=== PATIENT | male | born 1955 | race Caucasian/White ===

== ENCOUNTER 2020-04-15 08:43 | Outpatient (NON) | payer OTHER, SELFPAY ==
[2020-04-15 19:55] LABS: SARS-CoV-2 RNA PCR Negative
== END 2020-04-15 08:44 ==
PROVIDERS: PCP Nurse Practitioner Family; Visit Provider Nurse Practitioner Family
DX: R05 Cough (principal); Z20.828 Contact with and (suspected) exposure to other viral communicable diseases
CPT/HCPCS: 87635; C9803; U0003

== ENCOUNTER 2020-11-12 09:59 | Outpatient (CLI) | payer OTHER, SELFPAY ==
--- NOTE | 2020-11-12 14:41 | WPDPFTINT ---
PFT Procedure Performed PFT Procedure Performed Spirometry with Pre/Post Bronchodilator Plethysmography (Lung Vol) Diffusing Cap (DLCO) Flow Vol Loop PFT Interpretation This is a pulmonary function test with pre and post-bronchodilator spirometry, plethysmography and diffusing capacity. The test was performed and results interpreted in accordance with the 2019 and 2005 ATS/ERS Task Force guidelines respectively using the Global Lung Function Initiative-2012 reference equations. Patient demonstrated good effort and cooperation. The patient did have difficulty generating strong inspiratory efforts. Reproducibility criteria were met. The quality of the pre bronchodilator spirometry maneuver was Grade A and post bronchodilator spirometry maneuver was Grade B. Findings: Spirometry: there is decreased maximal expiratory airflow at low lung volumes with a concave expiratory flow tracing. The inspiratory flow tracings is flattened with an FEF: FIF 50 ratio of 2.71. the pre bronchodilator FVC is 3.77 L, 90% predicted. The pre bronchodilator FEV1 is 2.71 L, 84% predicted. The FEV1: FVC ratio 72%. The post bronchodilator FVC is 3.96 L, representing an 5% increase. The post bronchodilator FEV1 is 2.94 L, representing an 8% increase. Plethysmography: The total lung capacity is 8.85 L, 134% predicted. Functional residual capacity is 6.47 L, 187% predicted. The residual volume is 4.93 L, 222% predicted. Diffusing capacity: The absolute diffusion capacity is 26.0, 98% predicted. The diffusing capacity corrected for alveolar volume is 4.74, 112% predicted. Impression: There is a mild obstructive abnormality with a normal FEV1 and without significant improvement after inhaling a single dose of albuterol. The inspiratory flow tracing is flattened consistent with a variable extrathoracic obstruction. This can be seen with vocal cord paralysis, structural or functional vocal fold abnormalities, extrathoracic tracheomalacia, polychondritis, mobile tumors, and laryngomalacia. Clinical correlation is recommended. The increase in residual volume is consistent with air trapping from an obstructive abnormality. Hyperinflation is present is demonstrated by the increase in functional residual capacity and total lung capacity and is consistent with an obstructive abnormality. The diffusing capacity is normal. There are no prior studies for comparison
== END 2020-11-12 10:00 | disposition home or self-care (01) ==
LOC: ANHPFT 10:02
PROVIDERS: PCP Nurse Practitioner Family; Visit Provider Nurse Practitioner
DX: R05 Cough (principal)
CPT/HCPCS: 94060; 94726; 94729

== ENCOUNTER 2021-01-06 10:00 | Day surgery (SDC) | payer OTHER, SELFPAY ==
[2021-01-06] VITALS (11 sets, daily range): BP systolic 84–162; BP diastolic 62–100; PULSE 76–99; RESP 12–18; TEMP 36.4–37.2; O2SAT 95–100
--- NOTE | ~2021-01-06 | CT_ITS ---
EXAMINATION: CT abdomen pelvis wo con DATE: 01/06/2021 11:53 INDICATION: Left flank pain, hematuria TECHNIQUE: Computed tomography (CT) of the abdomen and pelvis was performed without intravenous contr ast. The dose-length product (DLP) was 365.73 mGy-cm. Automated exposure control and iterative recons truction technique were employed. COMPARISON: None FINDINGS: The lung bases are clear. The heart size is normal. The liver, spleen, pancreas, gallbladde r, and adrenal glands are normal. There is a 2.8 cm cyst of the right kidney. The left kidney is unre markable. No stones are identified in the kidneys, ureters, or bladder. There is no hydronephrosis or hydroureter. There is an approximately 5.6 x 4.1 cm soft tissue density in the lumen of the urinary bladder. No pathologically enlarged abdominal or pelvic lymph nodes are identified. There is no free intraperitoneal gas or evidence of bowel obstruction. Colonic diverticulosis is present without evide nce of diverticulitis. There is tiny fat-containing umbilical hernia. IMPRESSION: 1. Soft tissue density in the lumen of the urinary bladder which could reflect mass or hematoma. Dire ct visualization is recommended. 2. No urolithiasis identified. Reviewed, dictated and finalized at location A. IMPRESSION: 1. Soft tissue density in the lumen of the urinary bladder which could reflect mass or hematoma. Direct visualization is recommended. 2. No urolithiasis identified.
[2021-01-06 10:24] LABS: Basophils Percent Auto 0.5 % (0.2-1.2); Eosinophils Absolute Auto 0.1 K/mm3 (0-0.3); Eosinophils Percent Auto 1.6 % (0-4.4); Hematocrit 51.3 % (42.0-52.0); Hemoglobin 16.8 g/dL (14.0-18.0); Immature Granulocyte Absolute 0.01 K/mm3 (0.00-0.031); Immature Granulocyte Percent A 0.1 % (0-0.5); Lymphocytes Absolute Auto 1.42 K/mm3 (0.9-3.2); Lymphocytes Percent Auto 19.3 % (18.3-44.2); Mean Corpuscular HGB Conc 32.7 g/dl (32-36); Mean Corpuscular Hemoglobin 29.8 pg (26-34); Mean Platelet Volume 9.5 fl (7.4-10.4); Monocytes Absolute Auto 0.8 K/mm3 (0.1-0.6); Monocytes Percent Auto 10.3 % (2.6-8.5); Neutrophils Percent Auto 68.2 % (45.5-73.1); Platelet Count Result 223 k/mm3 (150-375); Red Blood Count 5.64 M/mm3 (4.6-6.20); White Blood Count 7.4 K/mm3 (4.5-10.0)
[2021-01-06 10:39] LABS: Anion Gap 8 mmol/L (8-16); Blood Urea Nitrogen 18 mg/dL (9-20); Calcium 8.9 mg/dL (8.4-10.2); Carbon Dioxide 30 mmol/L (22-30); Chloride 101 mmol/L (98-107); Estimated CRCL calculation 64 ml/min; Estimated Glomerular Filt Rate > 60; Glucose 113 mg/dL (65-110); Potassium 3.7 mmol/L (3.4-5.0); Sodium 139 mmol/L (137-145)
[2021-01-06 11:12] LABS: Add Urine Microscopic? YES; Appearance Urine Cloudy (Clear); Bilirubin Urine Negative (Negative); Blood Urine 3+ (Negative); Color Urine Red (Yellow); Glucose Urine UA 1+ mg/dL (Negative); Ketones Urine Negative (Negative); Leukocyte Esterase Ur Negative LEU/UL (Negative); Mucus Urine Moderate /lpf; Nitrate Urine Negative (Negative); Protein Urine 3+ mg/dL (Negative); RBC Urine >75 /hpf (0-2); Urobilinogen Urine Negative mg/dL (<2.0)
--- NOTE | 2021-01-06 12:48 | WPDHPUPDATE1 ---
History and Physical Update Update Date/Time: 01/06/21 12:48 History and Physical has been reviewed, including an updated exam of the patient. There are NO changes in the patient's condition. Risks, benefits, and alternatives have been discussed and questions answered. Patient agrees to proceed with procedure. Proceed with cysto, clot evacuation, possible turbt
--- NOTE | 2021-01-06 13:00 | ED.MALEGU ---
HPI - Male Genitourinary General Chief complaint: Urogenital-Male Stated complaint: left flank pain, hematuria Time Seen by Provider: 01/06/21 11:30 Source: patient Mode of arrival: ambulatory Limitations: no limitations History of Present Illness HPI Narrative: 65-year-old male Only medication is for thyroid Presents for evaluation of hematuria Patient states that 21 woke up this morning he had some discomfort in his lower abdomen and left flank and grossly bloody urine when he went to the bathroom He also had a sensation vaguely like his urine was cut off A second attempt showed pale hematuria and his discomfort has improved He does not take any blood thinners Related Data Allergies Allergy/AdvReac Type Severity Reaction Status Date / Time No Known Allergies Allergy Unverified 03/29/18 09:30 Review of Systems Review of Systems: All systems reviewed & are unremarkable except as noted in HPI and below Constitutional: Constitutional: Reports no additional constitutional complaints, Denies chills, Denies fever(s) and Denies headache(s) ENT: Denies headache(s) Cardiovascular: Cardiovascular: Denies chest pain and Denies dyspnea Respiratory: Respiratory: Denies cough and Denies dyspnea Gastrointestinal: Gastrointestinal: Reports abdominal pain, Denies diarrhea, Denies nausea and Denies vomiting Genitourinary: Genitourinary: Reports hematuria, Reports oliguria, Denies dysuria and Denies urinary frequency Musculoskeletal: Musculoskeletal: Denies deformity, Denies arthralgias, Denies joint swelling and Denies numbness Integumentary/Breasts: Skin/Breast: Denies wounds Hematologic/Lymphatic: Hematologic/Lymphatic: Reports no additional hematologic/lymphatic complaints Exam Const: General: cooperative, no acute distress and alert Orientation/consciousness: patient oriented x3 (alert) Limitations: altered mental status HENMT: Head: normal to inspection, normocephalic and atraumatic Ears: external ears normal General nose exam: no epistaxis Eyes: Conjunctivae: conjunctivae normal EOM: EOMs intact bilaterally Neck: Neck: normal visual inspection, supple and no JVD Resp: Effort & Inspection: normal respiratory effort and not labored Auscultation: clear to auscultation bilaterally and other (BS =) Cardio: Rate: regular rate Rhythm: regular rhythm GI: GI Palp: Yes Soft to palpation, No Tenderness to palpation present (GI), No Guarding due to palpation present (GI), No Palpable mass present and No Rebound tenderness present : General: Yes CVA tenderness (Mild, left side) Skin: General skin exam: normal color and no rashes or lesions noted Neuro: General: patient oriented x3 (alert) and moves all extremities Speech: normal speech Extrem: General: normal to inspection Psych: Affect: normal affect Course Course Emergency Course: Discussed CT results with Dr. Garg, either looks like a large mass or alternately a large clot emanating from a smaller mass that is not seen on the CT and he will be able to go for cystoscopy this afternoon Vital Signs Vital signs: Vital Signs Temperature 36.4 C 01/06/21 10:12 Pulse Rate 92 01/06/21 10:12 Respiratory Rate 18 01/06/21 10:12 Blood Pressure 154/95 H 01/06/21 10:12 Pulse Oximetry 95 01/06/21 10:12 Temperature 36.4 C 01/06/21 10:12 Pulse Rate 92 01/06/21 10:12 Respiratory Rate 18 01/06/21 10:12 Blood Pressure 154/95 H 01/06/21 10:12 Pulse Oximetry 95 01/06/21 10:12 [facility] - Male Genitourinary Lab Data Result diagrams: 01/06/21 10:17 01/06/21 10:17 Labs: Lab Results 01/06/21 01/06/21 01/06/21 Range/Units 10:17 10:17 10:41 WBC 7.4 (4.5-10.0) K/mm3 RBC 5.64 (4.6-6.20) M/mm3 Hgb 16.8 (14.0-18.0) g/dL Hct 51.3 (42.0-52.0) % MCV 91.0 (80-100) fl MCH 29.8 (26-34) pg MCHC 32.7 (32-36) g/dl RDW 14.0 (11.5-14.5) % Plt Count 223 (150-375) k/mm3
--- NOTE | 2021-01-06 14:47 | PM.IMHP ---
H&P: HPI History of Present Illness Date/Time: 01/06/21 14:47 Chief Complaint: gross hematuria with clots Narrative: 65 year old male presented to er with gross hematuria and clot. Ct in ER revealed a 5 cm irregularity in the bladder ( tumor vs clot). Presents for cystoscopy with clot evacuation, possible turbt. Review of Systems Review of Systems: All systems reviewed & are unremarkable except as noted in HPI and below Meds Home Medications and Allergies Allergies Allergy/AdvReac Type Severity Reaction Status Date / Time No Known Allergies Allergy Unverified 03/29/18 09:30 Vital Signs Vital Signs - 24 hr 01/06/21 10:12 Temperature 36.4 C Pulse Rate 92 Respiratory Rate 18 Blood Pressure 154/95 H Pulse Oximetry 95 Exam Const: General: cooperative Eyes: General: appearance normal, both eyes and all related structures Neck: Neck: normal visual inspection Chest: Chest palpation & inspection: normal inspection of the chest Resp: Effort & Inspection: normal respiratory effort Cardio: Rate: regular rate Rhythm: regular rhythm GI: Inspection: normal to inspection Skin: General skin exam: normal color H&P: Results Labs Labs: Short CBC 01/06/21 Range/Units 10:17 WBC 7.4 (4.5-10.0) K/mm3 Hgb 16.8 (14.0-18.0) g/dL Hct 51.3 (42.0-52.0) % Plt Count 223 (150-375) k/mm3 BMP 01/06/21 10:17 Sodium 139 Potassium 3.7 Chloride 101 Carbon Dioxide 30 BUN 18 Creatinine 1.00 Glucose 113 H Calcium 8.9 Urine 01/06/21 Range/Units 10:41 Urine Color Red H (Yellow) Urine Appearance Cloudy H (Clear) Urine pH 7.0 (5.0-9.0) Ur Specific [place] 1.020 (1.001-1.035) Urine Protein 3+ H (Negative) mg/dL Urine Glucose (UA) 1+ H (Negative) mg/dL Assessment and Plan Assessment and plan (1) Hematuria: Code(s): R31.9 - Hematuria, unspecified Status: Acute Assessment and Plan: Plan for cystoscopy with clot evacuation. (2) Bladder mass: Code(s): N32.89 - Other specified disorders of bladder Status: Acute Assessment and Plan: Will consider TURBT if has a mass other than clot
--- NOTE | 2021-01-06 14:52 | WPDANESEPPF ---
Anes - Initial Pre Proc Eval Procedure: Operation Date: 01/06/21 15:30 Proposed Procedures p Cystoscopy, Evacuation Bladder Clot, - Uche Garg MD s Possible Trans Urethral Resection Bladder Tumor - Uche Garg MD Date/Time: 01/06/21 14:52 Surgeon: Uche Garg MD Pre Op Diagnosis: left flank pain, hematuria Patient Data Age: 65 Gender: M Height: 1.73 m Weight: 78.9 kg Last Vital Signs Temp 36.4 C 01/06/21 10:12 Pulse 92 01/06/21 10:12 Resp 18 01/06/21 10:12 BP 154/95 H 01/06/21 10:12 Pulse Ox 95 01/06/21 10:12 Allergies Allergy/AdvReac Type Severity Reaction Status Date / Time No Known Allergies Allergy Verified 01/06/21 15:02 Home Medications Medication Instructions Recorded Confirmed Type levothyroxine 75 mcg PO DAILY 01/06/21 01/06/21 History Laboratory Tests 01/06/21 01/06/21 01/06/21 10:17 10:17 10:41 WBC 7.4 K/mm3 K/mm3 (4.5-10.0) RBC 5.64 M/mm3 M/mm3 (4.6-6.20) Hgb 16.8 g/dL g/dL (14.0-18.0) Hct 51.3 % % (42.0-52.0) MCV 91.0 fl fl (80-100) MCH 29.8 pg pg (26-34) MCHC 32.7 g/dl g/dl (32-36) RDW 14.0 % % (11.5-14.5) Plt Count 223 k/mm3 k/mm3 (150-375) MPV 9.5 fl fl (7.4-10.4) Immature Gran % (Auto) 0.1 % % (0-0.5) Neut % (Auto) 68.2 % % (45.5-73.1) Lymph % (Auto) 19.3 % % (18.3-44.2) [place] % (Auto) 10.3 % H % (2.6-8.5) Eos % (Auto) 1.6 % % (0-4.4) Baso % (Auto) 0.5 % % (0.2-1.2) Lymph # (Auto) 1.42 K/mm3 K/mm3 (0.9-3.2) [place] # (Auto) 0.8 K/mm3 H K/mm3 (0.1-0.6) Eos # (Auto) 0.1 K/mm3 K/mm3 (0-0.3) Baso # (Auto) 0.0 K/mm3 K/mm3 (0.0-0.1) Abs Immat Gran (auto) 0.01 K/mm3 K/mm3 (0.00-0.031) Absolute Neuts (auto) 5.0 K/mm3 K/mm3 (1.3-6.7) Absolute Nucleated RBC 0.0 K/mm3 K/mm3 (0.0-0.012) Nucleated RBC % 0.0 % % (0.0-0.2) Sodium 139 mmol/L mmol/L (137-145) Potassium 3.7 mmol/L mmol/L (3.4-5.0) Chloride 101 mmol/L mmol/L (98-107) Carbon Dioxide 30 mmol/L mmol/L (22-30) Anion Gap 8 mmol/L mmol/L (8-16) BUN 18 mg/dL mg/dL (9-20) Creatinine 1.00 mg/dL mg/dL (0.7-1.3) Estim Creat Clear Calc 64 ml/min ml/min Estimated GFR > 60 (59 - ) Glucose 113 mg/dL H mg/dL (65-110) Calcium 8.9 mg/dL mg/dL (8.4-10.2) Urine Color Red H (Yellow) Urine Appearance Cloudy H (Clear) Urine pH 7.0 (5.0-9.0) Ur Specific [place] 1.020 (1.001-1.035) Urine Protein 3+ mg/dL H mg/dL (Negative) Urine Glucose (UA) 1+ mg/dL H mg/dL (Negative) Urine Ketones Negative mg/dL mg/dL (Negative) Ur Blood (Man) 3+ H (Negative) Urine Nitrate Negative (Negative) Urine Bilirubin Negative (Negative) Urine Urobilinogen Negative mg/dL mg/dL (<2.0) Leukocyte Esterase Rfl Negative PRESTON/UL PRESTON/UL (Negative) Urine RBC >75 /hpf H /hpf (0-2) Urine Mucus Moderate /lpf H /lpf Patient hx anesthesia problems: none Family hx anesthesia problems: none PMFSH Past Medical History Medical History COPD (chronic obstructive pulmonary disease) Social History Social History (Updated 01/06/21 @ 15:15 by Yaneli Contreras APRN) Smoking status: Unknown if ever smoked Alcohol intake: unknown Substance use: unknown Living arrangements: with family Anes - Eval Final PreProcedure Day of Procedure 01/06/21 14:52 Patient weight: overweight Heart: regular rate and rhythm Lungs: clear to auscultation and normal air movement Airway: Mallampati scale class I
[2021-01-06] MEDS: LACTATED RINGERS 1,000 ML 30 ML IV CONT ×2 (14:55→16:08)
[2021-01-06] MEDS: ceFAZolin 2 GM/D5W 50 ML 2 GM/50 ML BAG IVPB (15:04)
--- NOTE | 2021-01-06 15:05 | WPDURCON ---
Assessment and Plan Assessment and plan (1) Bladder mass: Code(s): N32.89 - Other specified disorders of bladder Status: Acute Assessment and Plan: Obtain consent: Cystoscopy, possible clot evacuation, possible TURBT. Keep NPO Plan to go to the OR today with Dr. Garg. (2) Hematuria: Code(s): R31.9 - Hematuria, unspecified Status: Acute Urology Consult Note HPI Date Seen: 01/06/21 Requesting Physician: Uche Garg MD Primary Care Provider: Yaneli Mancilla, [employer]- Consult Narrative Narrative: Venkatesh Olivas is a 65 year old male who presents to the ER today with acute onset of gross hematuria and left flank pain that developed this morning. He denies any urologic history prior to this episode. He denies fever, chills, nausea, vomiting, abdominal pain, dysuria or history of BPH/OAB. His UA shows only RBC's no leukocytes, WBC is 7.4 and creatinine is 1.00. His CT shows a large bladder mass measuring 5.6 x 4.1 cm, and a right renal cyst. Review of Systems Cardiovascular: Cardiovascular: Denies chest pain Respiratory: Respiratory: Reports no additional respiratory complaints Gastrointestinal: Gastrointestinal: Denies abdominal pain, Denies nausea and Denies vomiting Genitourinary: Genitourinary: Denies dysuria, Reports flank pain (Left), Denies testicular pain, Denies urinary frequency, Denies urinary hesitancy and Denies urinary urgency [facility] Past Medical History Medical History COPD (chronic obstructive pulmonary disease) Social History Social History (Updated 01/06/21 @ 15:15 by Yaneli Contreras APRN) Smoking status: Unknown if ever smoked Alcohol intake: unknown Substance use: unknown Living arrangements: with family Meds Home Medications and Allergies Home Medications Medication Instructions Recorded Confirmed Type levothyroxine 75 mcg PO DAILY 01/06/21 01/06/21 History Allergies Allergy/AdvReac Type Severity Reaction Status Date / Time No Known Allergies Allergy Verified 01/06/21 15:02 Vital Signs Vital Signs - 24 hr 01/06/21 10:12 01/06/21 13:35 Temperature 97.6 F 97.5 F L Pulse Rate 92 90 Respiratory Rate 18 18 Blood Pressure 154/95 H 158/90 H Pulse Oximetry 95 97 Exam Resp: Effort & Inspection: normal respiratory effort Cardio: Rate: regular rate GI: GI Palp: Yes Soft to palpation and No Tenderness to palpation present (GI) : General: Yes CVA tenderness on the left Extrem: General: no edema Results Labs CBC & Chem 7: 01/06/21 10:17 01/06/21 10:17 Labs: Short CBC 01/06/21 Range/Units 10:17 WBC 7.4 (4.5-10.0) K/mm3 Hgb 16.8 (14.0-18.0) g/dL Hct 51.3 (42.0-52.0) % Plt Count 223 (150-375) k/mm3 BMP 01/06/21 10:17 Sodium 139 Potassium 3.7 Chloride 101 Carbon Dioxide 30 BUN 18 Creatinine 1.00 Glucose 113 H Calcium 8.9 Urine 01/06/21 Range/Units 10:41 Urine Color Red H (Yellow) Urine Appearance Cloudy H (Clear) Urine pH 7.0 (5.0-9.0) Ur Specific [place] 1.020 (1.001-1.035) Urine Protein 3+ H (Negative) mg/dL Urine Glucose (UA) 1+ H (Negative) mg/dL
[2021-01-06] MEDS: LIDOCAINE HCL 2% GEL UROJET 10 ML PKG MUCOUS MEM (15:35)
--- NOTE | 2021-01-06 15:43 | W.PM.PROC2 ---
Procedure Note - Detailed Date of Procedure 01/06/21 Pre-op Diagnosis left flank pain, hematuria Post-op Diagnosis same Procedure Performed Cystoscopy with clot evacuation and fulguration Surgeon Uche Garg MD Anesthesia general Findings Small amount of clot in bladder. No bladder tumors noted. Increased vascularity of prostate around bladder neck Description of Procedure Patient is taken the operative suite correctly identified. Once anesthesia was obtained was placed in dorsal lithotomy position and prepped draped usual sterile fashion. Twenty-two German scope was inserted the bladder direct vision. Prostate has lateral lobe hypertrophy and a fairly vascular bladder neck area. Upon entering the bladder it was difficult to visualize. We irrigated out approximately 30-40 cc of clot. Reinspection revealed no tumors or active bleeding. Both ureteral orifices are effluxing clear urine at this point time. He did have increased vascularity of the prostate at the bladder neck area. We went ahead and fulgurated some of this primarily on the right lobe. At this point time 2% viscous lidocaine was inserted urethra. Eight[address] was placed and connected to CBI. 10 cc were placed in the balloon. He is taken recovery room stable condition. Will wean CBI to off and discharged home with a catheter overnight. Plan on removing [place] in the morning. Patient does have what is noted to be a cyst on noncontrast CT. We will end up ordering a CT urogram on him to formally evaluate the renal parenchyma. Drains Yes Packing No Pathology none sent Complications No immediate complications Condition stable Disposition PACU
--- NOTE | 2021-01-06 16:24 | SUR.PHASEI ---
CBI STOPPED AT 1625
[2021-01-06] MEDS: fentaNYL CITRATE INJ (*CRX) 100 MCG/2 ML VIAL 25 MCG IV PUSH ×2 (16:36→16:40)
[2021-01-06] MEDS: oxyCODONE HCL (*CRX) 5 MG TAB IR PO (17:19)
--- NOTE | 2021-01-06 18:05 | SUR.PHASEII ---
pt meets discharge criteria and is waiting for his ride
== END 2021-01-06 18:15 | disposition home or self-care (01) ==
LOC: ANHED 13:04 → ANHSURGERY 13:43
PROVIDERS: Emergency Medicine; Emergency Provider Emergency Medicine; PCP Nurse Practitioner Family; Visit Provider Urology
PROC: 0TCB8ZZ Extirpation of Matter from Bladder, Via Natural or Artificial Opening Endoscopic (ICD-10-PCS; CPT 52001; principal; 2021-01-06 15:30)
DX: N42.89 Other specified disorders of prostate (principal); R31.9 Hematuria, unspecified; N28.1 Cyst of kidney, acquired; J44.9 Chronic obstructive pulmonary disease, unspecified; E07.9 Disorder of thyroid, unspecified
CPT/HCPCS: 52214; 36415; 74176; 80048; 81001; 85025; 99285; A9270; J0690; J2250; J3010; J7120

== ENCOUNTER → 2021-11-10 09:33 | Outpatient (CLI) | payer SELFPAY ==
--- NOTE | ~2021-11-10 | CT_ITS ---
EXAMINATION: CT diagnostic chest wo con DATE: 11/10/2021 09:56 INDICATION: Chronic cough TECHNIQUE: Computed tomography (CT) of the chest was performed without intravenous contrast. Automate d exposure control and iterative reconstruction technique were employed. The dose-length product was 309.25 mGy-cm. COMPARISON: X-ray chest 04/14/2017, CT abdomen and pelvis 01/06/2021. FINDINGS: CHEST: Thoracic aorta: Mild ectasia and arch calcification. Lung parenchyma and airways: Subtle area of groundglass centrilobular opacities in the dependent righ t middle lobe. Mild senescent changes. Airways are clear. Mild bibasilar scar/atelectasis. Thoracic inlet, axillae and chest wall: No thyroid or soft tissue mass. No axillary lymphadenopathy. Mediastinum: Subcentimeter AP window and subcarinal nodes. Heart and pericardium: Normal heart size. No pericardial effusion. Coronary artery calcifications: Mild. Pleura: No effusion or mass. Upper abdomen: No significant finding. Thoracic bones: No acute osseous finding in the chest. IMPRESSION: Subtle right middle lobe opacities may reflect hypersensitivity pneumonitis, respiratory bronchioliti s in smokers, or infectious airways disease. Reviewed, dictated and finalized at location K. IMPRESSION: Subtle right middle lobe opacities may reflect hypersensitivity pneumonitis, re spiratory bronchiolitis in smokers, or infectious airways disease.
== END ==
PROVIDERS: PCP Nurse Practitioner Family; Visit Provider Nurse Practitioner
DX: R05.3 Chronic cough (principal); R91.8 Other nonspecific abnormal finding of lung field
CPT/HCPCS: 99199; 71250

== ENCOUNTER 2021-11-26 08:57 | Outpatient (CLI) | payer MEDICARE, SELFPAY ==
--- NOTE | 2021-11-26 13:22 | WPDPFTINT ---
PFT Procedure Performed PFT Procedure Performed Spirometry with Pre/Post Bronchodilator Plethysmography (Lung Vol) Diffusing Cap (DLCO) Flow Vol Loop PFT Interpretation This is a pulmonary function test with pre and post-bronchodilator spirometry, plethysmography and diffusing capacity. The test was performed and results interpreted in accordance with the 2019 and 2005 ATS/ERS Task Force guidelines respectively using the Global Lung Function Initiative-2012 reference equations. Patient demonstrated good effort and cooperation. Reproducibility criteria were met. The quality of the pre bronchodilator spirometry maneuver was Grade A and post bronchodilator spirometry maneuver was Grade B. It was noted that the patient had difficulty with the inspiratory limb of the spirometry maneuvers. Findings: Spirometry: There is decreased maximal expiratory flow at low lung volumes with concave expiratory flow tracing. The inspiratory flow tracing is flattened with the FEF:FIF 50 ratio of 2.31. The pre bronchodilator FVC is 4.09 L, 98% predicted. The pre bronchodilator FEV1 is 2.94 L, 92% predicted. The pre bronchodilator FEV1: FVC ratio 72%. The post bronchodilator FVC is 3.91 L, representing a 4% decrease. The post bronchodilator FEV1 is 2.99 L, representing a 2% increase. The post bronchodilator FEV1: FVC ratio 77%. Plethysmography: The total lung capacity is 8.07 L, 122% predicted. The functional residual capacity is 5.22 L, 151% predicted. The residual volume is 3.62 L, 162% predicted. Diffusing capacity: The diffusion capacity unadjusted for hemoglobin and carboxyhemoglobin is 22.2, 84% predicted. The diffusing capacity adjusted for alveolar volume is 4.77, 113% predicted. In comparison to the previous pulmonary function test on 11/12/2020 the inspiratory flow tracing was flattened and it was noted that the patient had difficulty generate strong inspiratory limbs of the spirometry on that study as well. The post bronchodilator FVC is unchanged from 3.96 L to 3.91 L. The post bronchodilator FEV1 is unchanged from 2.94 L to 2.99 L. The total lung capacity is unchanged from 8.85 L to 8.07 L. The functional residual capacity is decreased from 6.47 L to 5.22 L. The residual volume is decreased from 4.93 L to 3.62 L. The diffusing capacity unadjusted for hemoglobin and carboxyhemoglobin is decreased from 26.0 to 22.2. The diffusing capacity adjusted for alveolar volume is unchanged from 4.74 to 4.77. Impression: The contour of the inspiratory flow tracing is flattened. Flattening of the inspiratory flow tracing is seen with variable extrathoracic obstruction. This has been described with vocal cord paralysis, structural or functional vocal fold abnormalities, extrathoracic tracheomalacia, polychondritis, mobile tumors, and laryngomalacia. Clinical correlation is recommended. There is a mild obstructive abnormality with a normal FEV1 and without significant improvement after inhaling a single dose of albuterol. The increase in residual volume is consistent with air trapping from an obstructive abnormality. Hyperinflation is present as demonstrated by the increase in functional residual capacity and is consistent with an obstructive abnormality. The diffusing capacity is normal. In comparison to previous pulmonary function test on 11/12/2020 the flattened inspiratory flow flow tracing is unchanged. There has been a greater than anticipated time dependent decrease in the functional residual capacity, residual volume, and diffusing capacity unadjusted for hemoglobin and carboxyhemoglobin with no significant change in the post bronchodilator FVC, FEV1, total lung capacity and diffusing capacity adjusted for alveolar volume. Clinical correlation is recommended.
== END 2021-11-26 08:58 | disposition home or self-care (01) ==
PROVIDERS: PCP Nurse Practitioner Family; Visit Provider Nurse Practitioner
DX: R05.3 Chronic cough (principal); R94.2 Abnormal results of pulmonary function studies
CPT/HCPCS: 94060; 94375; 94726; 94729

== ENCOUNTER 2022-01-05 13:27 | Outpatient (CLI) | payer MEDICARE, SELFPAY ==
--- NOTE | ~2022-01-05 | XR_ITS ---
EXAMINATION: XR barium swallow modified DATE: 01/05/2022 14:09 INDICATION: Dysphagia. Hoarseness. TECHNIQUE: The patient was given barium-containing material of multiple consistencies to swallow by t wilfred speech pathologist while I performed fluoroscopy. Fluoroscopy exposure time was 1.7 minutes. The n umber of fluoroscopy images saved to the PACS was 1. Dose-area product was 1.293 Gy-cm^2. FINDINGS: The oral stage is within functional limits. There is reduced laryngeal elevation, reduced laryngeal a dduction, reduced tongue base retraction, reduced pharyngeal squeeze, vallecular residue, piriform si nus residue, laryngeal penetration, and aspiration. The cervical/esophageal stage is within functiona l limits. IMPRESSION: 1. Laryngeal penetration and aspiration. 2. Please refer to the speech therapy report for recommendations. Reviewed, dictated and finalized at location A.
--- NOTE | 2022-01-05 16:22 | REHSTMBS ---
Assessment and note entered by Ashley Royal, TRANSITIONS MANAGER RN Modified Barium Swallow Evaluation ST Clinical Summary The above pt was positioned for a lateral view and presented with thin liquids and pudding consistency in 3-4 ml amounts. Given the patient's medical history of 30-35 radiation treatments, recurrent pneumonia, current vocal hoarseness, and c/o food getting stuck in his throat, the pt was immediately instructed on the initial trials to produce an effortful swallow. The oral stages are within functional limits; with both thin liquid and pudding consistencies, reduced tongue base retraction movement was exhibited which resulted in severe vallecular residue; upon a/p view, noted was a slightly greater amount of residual in the right valleculae and pyriform sinus. Reduced laryngeal elevation was also exhibited as evidenced by laryngeal penetration during the swallow and severe pyriform sinus residual. Aspiration subsequently occurred after the swallow . With laryngeal sensitivity the pt produced repeated dry swallows as well as a cough reflex but he was not able to clear all residual and/or aspirate. Changes in head positioning, i.e. chin tuck/flexion and turning his head to the right only resulted in minimal improvement or change. The use of a modified version of the supraglottic swallow also did not yield significant improvement . Impression: moderate to severe dysphagia Recommendation: outpatient speech therapy
== END 2022-01-05 13:28 | disposition home or self-care (01) ==
PROVIDERS: PCP Nurse Practitioner Family; Visit Provider Otolaryngology
DX: R13.10 Dysphagia, unspecified (principal); R47.02 Dysphasia; R49.0 Dysphonia; J32.9 Chronic sinusitis, unspecified; R09.81 Nasal congestion; J38.00 Paralysis of vocal cords and larynx, unspecified; Z92.3 Personal history of irradiation
CPT/HCPCS: 92611

== ENCOUNTER 2022-01-10 15:30 | Outpatient (RCR) | payer MEDICARE, SELFPAY ==
--- NOTE | 2021-10-24 09:13 | STOPEVAL ---
Thank you for referring Venkatesh Olivas to [facility] The patient is scheduled to be seen for therapy? 2x/week for 4 weeks. Please review, sign, date and return this plan of care HI. I agree with and certify that the following plan of care is medically necessary. 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 Patient indicated that his voice became hoarse during that time and his thyroid was affected and his pituitary gland may have been affected. 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 About three/
--- NOTE | 2022-01-14 13:56 | PCSTNOTE ---
Continuing Speech Therapy treatment with new number: [id number].
--- NOTE | 2022-01-14 14:10 | PCSTNOTE ---
This treatment is being continued on visit number [id number]. Please see documentation on both accounts to view progress. Completed interventions, outcomes, and problems have been marked as Inactive to facilitate the copying of the Care plan routine for recurring accounts.
== END 2022-01-14 13:49 | disposition home or self-care (01) ==
LOC: ANHST 15:30
PROVIDERS: PCP Nurse Practitioner Family; Referring Provider Nurse Practitioner Family; Visit Provider Nurse Practitioner Family
DX: J38.02 Paralysis of vocal cords and larynx, bilateral (principal)
CPT/HCPCS: 92524; 92526

== ENCOUNTER 2022-01-12 08:40 | Outpatient (CLI) | payer MEDICARE, SELFPAY ==
--- NOTE | ~2022-01-12 | CT_ITS ---
EXAMINATION: CT soft tissue neck w con DATE: 01/12/2022 09:10 INDICATION: Vocal cord paralysis. Tonsil cancer status post radiation therapy. TECHNIQUE: Computed tomography (CT) of the neck was performed with 75 mL Omnipaque-350 intravenous co ntrast. Automated exposure control and iterative reconstruction technique were employed. The dose-rocael gth product was 602.90 mGy-cm. COMPARISON: Chest CT 11/10/2021 FINDINGS: There is mild scarring at the lung apices. There are likely changes of ocular lens replacem ent surgeries. There is a 10 x 16 mm lymph node in the aorticopulmonary window. There is plaque in th e proximal internal carotid arteries with less than 50% stenosis relative to normal distal artery lum en diameters. There is moderate cervical spondylosis. IMPRESSION: 1. Mildly enlarged mediastinal lymph node, which may be reactive or metastatic disease. Reviewed, dictated and finalized at location A.
[2022-01-12 09:05] LABS: Estimated Glomerular Filt Rate > 60
== END 2022-01-12 08:41 | disposition home or self-care (01) ==
PROVIDERS: PCP Nurse Practitioner Family; Visit Provider Otolaryngology
DX: J38.00 Paralysis of vocal cords and larynx, unspecified (principal); I65.23 Occlusion and stenosis of bilateral carotid arteries; R59.9 Enlarged lymph nodes, unspecified; M47.812 Spondylosis without myelopathy or radiculopathy, cervical region
CPT/HCPCS: 70491; Q9967

== ENCOUNTER 2022-01-19 08:32 | Outpatient (RCR) | payer MEDICARE, SELFPAY ==
--- NOTE | 2022-01-14 14:12 | PCSTNOTE ---
The treatment documented on this account is a continuation of the treatment documented on visit number [id number]. Please see documentation on both accounts to view progress. The Plan of Care has been transitioned and updated within the new V#. I have addressed and agree with the discipline specific Problems, Interventions, and Goals for the current certification period. Completed interventions, outcomes, and problems have been marked as Inactive to facilitate the copying of the Care plan routine for recurring accounts.
--- NOTE | 2022-02-03 13:25 | STOPDC ---
Assessment and note entered by Raegan Cadet POPCORN VENDOR Evaluation Information Assessment Status Discharge - Pt Not Presen Assessment ST Clinical Summary DISCHARGE SUMMARY This patient was seen for a Modified Barium Swallow study and then one treatment of Speech Therapy to instruct exercises to improve the strength and safety of the swallow. Patient voiced and demonstrated good understanding of the home exercise program and completed the exercises faithfully. He reported that he feels that the exercises have been helpful and additionally, he has noted an improvement in his voicing ability. Patient discharged at his requested secondary to report of an issue with a lymph node, stating that he wanted to focus on dealing with his lymph node issue at this time, but stating that he would be continuing with the home exercise program independently. He is being discharged this date with goals achieved. Thank you for allowing the opportunity of working with this gentleman. Plan of Care ST Services Indicated No
--- NOTE | 2022-02-03 13:30 | STOPDC ---
Assessment and note entered by Raegan Cadet CLINICAL EXERCISE SPECIALIST Evaluation Information Assessment Status Discharge - Pt Not Presen Assessment ST Clinical Summary DISCHARGE SUMMARY This patient was seen for a Modified Barium Swallow study and then two treatments of Speech Therapy to address exercises to improve the strength and safety of the swallowing. Patient voiced and demonstrated good understanding of the home exercise program and completed the exercises faithfully. He reported that he feels that the exercises have been helpful and additionally, he has noted an improvement in his voicing ability. Patient discharged at his requested secondary to report of an issue with a lymph node, stating that he wanted to focus on dealing with his lymph node issue at this time, but stating that he would be continuing with the home exercise program independently. He is being discharged this date with goals achieved. Thank you for allowing the opportunity of working with this gentleman. Plan of Care ST Services Indicated No
== END 2022-02-03 15:18 | disposition home or self-care (01) ==
LOC: ANHST 08:32
PROVIDERS: PCP Nurse Practitioner Family; Visit Provider Nurse Practitioner Family
DX: J38.02 Paralysis of vocal cords and larynx, bilateral (principal)
CPT/HCPCS: 92526

== ENCOUNTER 2022-07-26 09:27 | Emergency (ER) | payer MEDICARE, SELFPAY ==
[2022-07-26] VITALS (7 sets, daily range): BP systolic 132–167; BP diastolic 84–95; PULSE 85–93; RESP 14–20; TEMP 36.6; O2SAT 93–100
--- NOTE | 2022-07-26 | ECG_ITS ---
Measurements Intervals [place] Rate: 93 P: 14 GA: 133 QRS: -5 QRSD: 97 T: 31 QT: 342 QTc: 426 Interpretive Statements SINUS RHYTHM INCOMPLETE RIGHT BUNDLE BRANCH BLOCK [90+ ms QRS DURATION, TERMINAL R IN V1/V2, 40+ ms S IN I/aVL/V4/V5/V6] BASELINE ARTIFACT PRESENT NO PREVIOUS ECG AVAILABLE FOR COMPARISON Electronically Signed On 07-26-2022 16:05:18 CDT by Ynes Piña M.D.
--- NOTE | ~2022-07-26 | XR_ITS ---
EXAMINATION: XR chest 1V portable DATE: 07/26/2022 10:55 INDICATION: Shortness of breath and wheezing TECHNIQUE: frontal view of the chest was obtained. COMPARISON: Chest radiograph dated 04/04/2017 FINDINGS: The lungs remain clear with no focal airspace opacities, pulmonary edema, pleural effusion or pneumot horax. The cardiomediastinal silhouette is normal. Visualized bones and soft tissues are unremarkable . IMPRESSION: 1. No acute cardiopulmonary disease. Reviewed, dictated and finalized at location A.
--- NOTE | ~2022-07-26 | CT_ITS ---
EXAMINATION: CT soft tissue neck w con DATE: 07/26/2022 11:47 INDICATION: Stridor. TECHNIQUE: Computed tomography (CT) of the neck was performed with 75 mL Omnipaque-350 intravenous co ntrast. Automated exposure control and iterative reconstruction technique were employed. The dose-rocael gth product was 590.21 mGy-cm. COMPARISON: Neck CT 01/12/2022 FINDINGS: There is mild scarring at the lung apices. There are likely changes of ocular lens replacem ent surgeries. There is a 10 x 14 mm left paratracheal lymph node. There is plaque in the proximal in ternal carotid arteries with less than 50% stenosis relative to normal distal artery lumen diameters. The pharynx and larynx are unremarkable. There is mucosal thickening in the paranasal sinuses. There is severe cervical spondylosis. IMPRESSION: 1. Mildly enlarged mediastinal lymph node, stable from 01/12/2022, which may be reactive or metastatic disease. Reviewed, dictated and finalized at location A.
[2022-07-26] MEDS: methylPREDNISolone SOD SUCC 125 MG VIAL IV PUSH (10:40)
[2022-07-26 11:16] LABS: Basophils Percent Auto 0.6 % (0.2-1.2); Eosinophils Absolute Auto 0.1 K/mm3 (0-0.3); Eosinophils Percent Auto 1.3 % (0-4.4); Immature Granulocyte Absolute 0.01 K/mm3 (0.00-0.031); Immature Granulocyte Percent A 0.1 % (0-0.5); Lymphocytes Percent Auto 16.3 % (18.3-44.2); Mean Corpuscular HGB Conc 33.3 g/dl (32-36); Mean Corpuscular Volume 90.1 fl (80-100); Mean Platelet Volume 10.4 fl (7.4-10.4); Monocytes Absolute Auto 0.8 K/mm3 (0.1-0.6); Monocytes Percent Auto 11.4 % (2.6-8.5); Neutrophils Absolute Auto 4.8 K/mm3 (1.3-6.7); Neutrophils Percent Auto 70.3 % (45.5-73.1); Platelet Count Result 250 k/mm3 (150-375); Red Blood Count 5.66 M/mm3 (4.6-6.20); Red Cell Distribution Width 15.1 % (11.5-14.5); White Blood Count 6.8 K/mm3 (4.5-10.0)
[2022-07-26 11:25] LABS: Alanine Aminotransferase 28 U/L (6-50); Albumin Level 4.3 g/dL (3.5-5.1); Alkaline Phosphatase 53 U/L (38-126); Anion Gap 6 mmol/L (8-16); Aspartate Amino Transferase 45 U/L (17-59); Bilirubin,Total 0.8 mg/dL (0.2-1.3); Blood Urea Nitrogen 17 mg/dL (9-20); CRP 0.6 mg/dL (<1.0); Calcium 8.7 mg/dL (8.4-10.2); Carbon Dioxide 31 mmol/L (22-30); Chloride 100 mmol/L (98-107); Estimated CRCL calculation 64 ml/min; Estimated Glomerular Filt Rate > 60; Glucose 122 mg/dL (65-110); Potassium 3.9 mmol/L (3.4-5.0); Sodium 137 mmol/L (137-145)
--- NOTE | 2022-07-26 11:53 | ED.SOB ---
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 He has long standing wheezing intermittently worse at night. He also has been having stridor when sleeping at night for a while. He has been evaluated by ENT and pulmonology for his symptoms. He states he was outside working in the yard yesterday, and today he woke up wheezing, sob and stridor that he only usually has with sleeping. These symptoms started this morning and they are improving. He denies fever, cough, sore throat, chills, runny nose or congestion. He has appointment with ENT in August. Related Data Home Medications Medication Instructions Recorded Confirmed levothyroxine 75 mcg tablet 75 mcg PO DAILY 01/06/21 01/06/21 albuterol sulfate 90 mcg/actuation inhalation 07/26/22 07/26/22 aerosol inhaler ergocalciferol (vitamin D2) 1,250 07/26/22 mcg (50,000 unit) capsule fluticasone furoate 100 inhalation 07/26/22 mcg/actuation blister powder for inhalation (Arnuity Ellipta) omeprazole 40 mg capsule,delayed mg 07/26/22 release tadalafil 10 mg tablet mg 07/26/22 Allergies Allergy/AdvReac Type Severity Reaction Status Date / Time No Known Allergies Allergy Verified 07/26/22 10:17 Review of Systems Constitutional: Constitutional: Denies weakness Cardiovascular: Cardiovascular: Denies syncope, Denies rapid heart rate, Denies irregular heart rhythm, Denies leg edema and Denies dyspnea Respiratory: Respiratory: Denies chest congestion, Denies hemoptysis, Denies excessive phlegm production, Reports dyspnea and Reports wheezing Gastrointestinal: Gastrointestinal: Denies abdominal pain, Denies hematochezia, Denies diarrhea and Denies vomiting Genitourinary: Genitourinary: Denies hematuria, Denies dysuria, Denies penile discharge and Denies testicular pain Musculoskeletal: Musculoskeletal: Denies joint swelling, Denies loss of height and Denies muscle weakness Neurologic: Denies syncope, Denies focal weakness and Denies weakness PMFSH Past Medical History Medical History COPD (chronic obstructive pulmonary disease) Hypothyroid Tonsil cancer Surgical History Surgical History Hx of tonsillectomy Social History Social History Smoking status: Never smoker Substance use: never Living arrangements: with family Exam Const: General: no acute distress and alert Nutritional Appearance: well nourished Orientation/consciousness: patient oriented x3 HENMT: Head: normal to inspection Ears: external ears normal Face and sinus: normal facial exam Mouth: Yes Normal oral and palatal mucosa present, Yes lip normal and Yes moist mucous membranes Teeth and gingiva: dentition normal Throat: posterior oropharynx normal and uvula midline Eyes: EOM: EOMs intact bilaterally Neck: Neck: normal visual inspection and no lymphadenopathy Chest: Chest palpation & inspection: normal inspection of the chest Resp: Effort & Inspection: labored (slightly labored), no retractions and no use of accessory muscles Auscultation: clear to auscultation bilaterally Other: mild audible stridor Cardio: Rate: regular rate Rhythm: regular rhythm Heart sounds: no murmurs GI: GI Palp: Yes Soft to palpation, No Tenderness to palpation present (GI), No Guarding due to palpation present (GI) and No Rigid due to palpation Aus
== END 2022-07-26 13:20 | disposition home or self-care (01) ==
PROVIDERS: Emergency Provider General Practice; PCP Nurse Practitioner Family
DX: R06.00 Dyspnea, unspecified (principal); J38.7 Other diseases of larynx; J44.9 Chronic obstructive pulmonary disease, unspecified; E03.9 Hypothyroidism, unspecified; Z79.51 Long term (current) use of inhaled steroids; Z85.21 Personal history of malignant neoplasm of larynx; Z92.3 Personal history of irradiation
CPT/HCPCS: 36415; 70491; 71045; 80053; 85025; 86140; 93005; 96374; 99284; J2930; Q9967

== ENCOUNTER 2023-05-23 12:29 | Emergency (ER) | payer MEDICARE, SELFPAY ==
--- NOTE | ~2023-05-23 | XR_ITS ---
EXAMINATION: XR foot RT min 3V DATE: 05/23/2023 13:05 INDICATION: Right foot pain and swelling. TECHNIQUE: 4 views of right foot were obtained. COMPARISON: None. FINDINGS: Bone alignment is normal. No fracture. There is mild osteoarthritis of first metatarsophala ngeal joint and some of the midfoot joints. There is mild to moderate osteoarthritis of some of the i nterphalangeal joints. IMPRESSION: 1. Polyarticular osteoarthritis. Reviewed, dictated and finalized at location A. HEALTH RN
[2023-05-23 12:39] VITALS: BP 145/76; PULSE 85; RESP 16; TEMP 36.8; O2SAT 96
--- NOTE | 2023-05-23 13:11 | ED.EXTPRO ---
HPI - Extremity Problem General Chief complaint: Extremity Problem,Nontraumatic Stated complaint: Right Foor Pain Source: patient Mode of arrival: ambulatory Limitations: no limitations History of Present Illness HPI Narrative: Patient presents for evaluation of pain in the right foot for last 2 days. Pain is primarily located in the MTP joint of the big toe. He has associated redness. He rates his pain 2/10 in severity and describes it as tenderness . Pain is worse with movement and pressure applied to the affected area. He took ibuprofen which provided some relief. No history of similar symptoms. No known injury. Denies paresthesias. No history of gout. He also reports some sinus congestion and drainage as of late. Related Data Home Medications Medication Instructions Recorded Confirmed albuterol sulfate 90 mcg/actuation 2 puff inhalation Q4HWA 05/23/23 05/23/23 aerosol inhaler docusate sodium 100 mg capsule 100 mg PO BID 05/23/23 05/23/23 ergocalciferol (vitamin D2) 1,250 1 unit PO DIRECTED 05/23/23 05/23/23 mcg (50,000 unit) capsule latanoprost 0.005 % eye drops 1 drp EACH EYE HS 05/23/23 05/23/23 levothyroxine 88 mcg tablet 88 mcg PO DAILY 05/23/23 05/23/23 tadalafil 10 mg tablet 10 mg PO PRN PRN Erectile 05/23/23 05/23/23 Dysfunction Allergies Allergy/AdvReac Type Severity Reaction Status Date / Time No Known Allergies Allergy Verified 05/23/23 12:34 Review of Systems Review of Systems: CONSTITUTIONAL: Denies fever, chills, or sweats. EYES: Denies visual changes, redness, or discharge. ENT: Reports sinus congestion and drainage. CARDIOVASCULAR: Denies chest pain, palpitations, or edema. RESPIRATORY: Denies cough or dyspnea. GASTROINTESTINAL: Denies abdominal pain, nausea, vomiting, or diarrhea. GENITOURINARY: Denies dysuria or hematuria. SKIN: reports redness in the right great toe. MUSCULOSKELETAL: Reports pain in the right great toe. NEUROLOGIC: Denies headache, numbness, dizziness, or weakness. PSYCHIATRIC: Denies anxiety or depression. [facility] Past Medical History Medical History COPD (chronic obstructive pulmonary disease) Hypothyroid Tonsil cancer Surgical History Surgical History Hx of tonsillectomy Family History Family History Mother Lung cancer Social History Social History Smoking status: Never smoker Alcohol intake: never Substance use: never Lack of Transportation: No Lack of Food: Never True Current Housing: I Have Housing Concerned About Future Housing: No Difficulty Paying Gas/Electric Bills: No Difficulty Paying for Meds: No Currently Unemployed: No Education: Master's Degree or Higher Difficulty w/ Childcare or Family Care: No Living arrangements: with family Occupation/Education: retired Gender identity (if verbalized by the patient): Male Exam Narrative: GENERAL: Well-appearing, well-nourished, and in no acute distress. HEAD: Normocephalic, atraumatic. EYES: PERRLA and EOMI. ENT: Nares clear, no rhinorrhea or epistaxis. Mucous membranes moist. Oropharynx without tonsillar hypertrophy exudate or other lesions. Bilateral TMs pearly virgen nonbulging NECK: Supple. No adenopathy or masses. No carotid bruits or JVD CHEST: Clear to auscultation. No respiratory distress. No wheezes rales or rhonchi HEART: Regular rate and rhythm. No murmur heard. Normal peripheral pulses. ABDOMEN: Soft, nontender, nondistended, normal active bowel sounds. EXTREMITIES: Normal range of motion. No edema. There is tenderness noted over the MTP joint of the right great toe. SKIN: There is erythema noted to the MTP joint of the right great toe. NEURO: No focal deficits. Alert and oriented x3. PSYC
== END 2023-05-23 13:36 | disposition home or self-care (01) ==
PROVIDERS: Emergency Provider Nurse Practitioner; PCP Family Medicine
DX: M10.9 Gout, unspecified (principal); J44.9 Chronic obstructive pulmonary disease, unspecified; E03.9 Hypothyroidism, unspecified; Z85.89 Personal history of malignant neoplasm of other organs and systems
CPT/HCPCS: 73630; 99213; G0463

== ENCOUNTER 2023-05-30 17:11 | Emergency (ER) | payer MEDICARE, SELFPAY ==
--- NOTE | 2023-05-30 17:31 | ED.GENADULT ---
HPI - General Adult General Chief complaint: Upper Respiratory Infection Stated complaint: sinus issue recurring since last visit,chills Time Seen by Provider: 05/30/23 17:45 Source: patient, RN notes reviewed and old records reviewed Mode of arrival: ambulatory Limitations: no limitations History of Present Illness HPI narrative: Patient presents requesting a refill, treatment for a recurrent sinus infection. Had a 20 day treatment of Augmentin for sinus infection starting on April 26. Patient states he did get better for couple of days but then it returned. Presents today with fever, sinus congestion, headache. States that he took Aleve D this morning On arrival patient is hypertensive, tachycardic, tachypneic, low saturations as well as fever. Onset (ago): week(s) Treatments prior to arrival: NSAID Related Data Home Medications Medication Instructions Recorded Confirmed ergocalciferol (vitamin D2) 1,250 1 unit PO DIRECTED 05/23/23 05/30/23 mcg (50,000 unit) capsule latanoprost 0.005 % eye drops 1 drp EACH EYE HS 05/23/23 05/30/23 levothyroxine 88 mcg tablet 88 mcg PO DAILY 05/23/23 05/30/23 docusate sodium 100 mg capsule 100 mg PO DAILY 05/30/23 05/30/23 Allergies Allergy/AdvReac Type Severity Reaction Status Date / Time No Known Allergies Allergy Verified 05/30/23 11:20 Review of Systems Review of Systems: All systems reviewed & are unremarkable except as noted in HPI and below Constitutional: Constitutional: Reports as per HPI, Reports body ache(s), Reports chills, Reports fever(s), Reports headache(s) and Reports lethargy Eyes: Eyes: Reports no additional eye complaints ENT: Reports as per HPI, Reports sinus pain and Reports sinus pressure Cardiovascular: Cardiovascular: Reports no additional cardiovascular complaints, Denies chest pain and Denies dyspnea Respiratory: Respiratory: Reports no additional respiratory complaints, Denies chest congestion, Denies cough and Denies dyspnea Gastrointestinal: Gastrointestinal: Reports no additional gastrointestinal complaints, Denies abdominal pain, Denies nausea and Denies vomiting Musculoskeletal: Musculoskeletal: Reports no additional musculoskeletal complaints Integumentary/Breasts: Skin/Breast: Reports system reviewed and no additional complaints, except as docu Neurologic: Reports system reviewed and no additional complaints, except as documented Psychiatric: Psychiatric: Reports no additional psychiatric complaints Allergic/Immunologic: Allergic/Immunologic: Reports no additional allergic/immunologic complaints PMF Past Medical History Medical History COPD (chronic obstructive pulmonary disease) Hypothyroid Tonsil cancer Surgical History Surgical History Hx of tonsillectomy Family History Family History Mother Lung cancer Social History Social History Smoking status: Never smoker Alcohol intake: current Substance use: never Lack of Transportation: No Lack of Food: Never True Current Housing: I Have Housing Concerned About Future Housing: No Difficulty Paying Gas/Electric Bills: No Difficulty Paying for Meds: No Currently Unemployed: No Education: Master's Degree or Higher Difficulty w/ Childcare or Family Care: No Living arrangements: with family Occupation/Education: retired Gender identity (if verbalized by the patient): Male Spiritual care concerns: No Comments At the time of my signature, I reviewed and agree with the nursing past medical, surgical, social, and family history. There is no relevant family history pertinent to the patient complaint. Exam Const: General: cooperative, well developed, alert, ill appearing acutely, tired appearing, uncomfortable and well nourishe
[2023-05-30 17:33] VITALS: BP 163/81; PULSE 131; RESP 24; TEMP 39.1; O2SAT 90
--- NOTE | 2023-05-30 17:46 | ECG_ITS ---
Measurements Intervals [place] Rate: 129 P: 48 MA: 144 QRS: 1 QRSD: 86 T: 64 QT: 283 QTc: 416 Interpretive Statements SINUS TACHYCARDIA INCOMPLETE RIGHT BUNDLE BRANCH BLOCK INTERPRETATION BASED ON A DEFAULT AGE OF 40 YEARS COMPARED TO ECG 07/26/2022 09:37:01 SINUS TACHYCARDIA NOW PRESENT Electronically Signed On 05-31-2023 15:04:21 BANANA RIPENING ROOM SUPERVISOR by Ynes Piña M.D.
[2023-05-30 18:01] VITALS: TEMP 39.1
[2023-05-30] MEDS: ACETAMINOPHEN 500 MG TABLET 1000 MG PO (18:01)
[2023-05-30 18:08] VITALS: PULSE 130; O2SAT 95
== END 2023-05-30 18:08 | disposition short-term general hospital (02) ==
PROVIDERS: Emergency Provider Nurse Practitioner; PCP Family Medicine
DX: R00.0 Tachycardia, unspecified (principal); J34.89 Other specified disorders of nose and nasal sinuses; Z20.822 Contact with and (suspected) exposure to COVID-19; J44.9 Chronic obstructive pulmonary disease, unspecified; E03.9 Hypothyroidism, unspecified; Z85.89 Personal history of malignant neoplasm of other organs and systems; I45.10 Unspecified right bundle-branch block
CPT/HCPCS: 87426; 87804; 93005; 99213; A9270; G0463

== ENCOUNTER 2023-05-30 18:32 | Inpatient (IN) | payer MEDICARE, SELFPAY ==
[2023-05-30] VITALS (11 sets, daily range): BP systolic 106–151; BP diastolic 74–79; PULSE 98–134; RESP 14–24; TEMP 38.1; O2SAT 89–98
--- NOTE | ~2023-05-30 | CT_ITS ---
EXAMINATION: CTA chest PE protocol DATE: 05/31/2023 14:35 INDICATION: Fever and hypoxia, history of tonsillar cancer TECHNIQUE: Computed tomography angiography (CTA) of the chest was performed with 100 mL Omnipaque-350 intravenous contrast timed to evaluate the pulmonary arteries. Coronal maximum intensity projection 3D-reconstructions were created by the technologist. The dose-length product (DLP) was 463.18 mGy-cm. Automated exposure control and iterative reconstruction technique were employed. COMPARISON: 11/10/2021 FINDINGS: The pulmonary arteries are well-opacified. Although limited by respiratory motion, no pulmo nary embolism is identified. There are widespread airspace opacities in the lower lobes, lingula, and middle lobe. No pleural effusion or pneumothorax. There is a 10 mm nodule of the right upper lobe on image 72. There is mild aorticopulmonary window and bilateral hilar lymphadenopathy. The heart size is normal. There is mild thoracic spondylosis. IMPRESSION: 1. No pulmonary embolus identified, sensitivity slightly limited by respiratory motion. 2. Widespread airspace opacities of the lower lobes, lingula, and right middle lobe, consistent with multifocal pneumonia. 3. Right lower lobe nodule which may be infectious or inflammatory however follow-up low-dose CT in t hree months is recommended given patient's history of tonsillar cancer. 4. Bilateral hilar and mediastinal lymphadenopathy, likely reactive. Reviewed, dictated and finalized at location B. UTER TECHNICIAN IMPRESSION: 1. No pulmonary embolus identified, sensitivity slightly limited by respiratory motion. 2. Widespread airspace opacities of the lower lobes, lingula, and right middle lobe, consistent with multifocal pneumonia. 3. Right lower lobe nodule which may be infectious or inflammatory however foll ow-up low-dose CT in three months is recommended given patient's history of ton sillar cancer. 4. Bilateral hilar and mediastinal lymphadenopathy, likely reactive.
--- NOTE | ~2023-05-30 | XR_ITS ---
EXAMINATION: XR chest 1V portable Exam Date/Time: 05/30/2023 19:05 ENTRY LEVEL DRAFTER HISTORY: SOB, increased HR Comparison: 07/26/2022; CT chest 11/10/2021. RESULT: Lines, tubes, and devices: None. Lungs and pleura: Basilar streaky and reticular opacities. No focal consolidation, pleural effusion, or pneumothorax. Cardiomediastinal silhouette: Stable. Other: No acute osseous or upper abdominal finding. IMPRESSION: Basilar pulmonary opacities may represent atelectasis/scar, dependent interstitial edema, and/or deve loping interstitial disease. Reviewed, dictated and finalized at location K. Y LEVEL DRAFTER IMPRESSION: Basilar pulmonary opacities may represent atelectasis/scar, dependent interstit ial edema, and/or developing interstitial disease.
--- NOTE | 2023-05-30 18:36 | ECG_ITS ---
Measurements Intervals [place] Rate: 126 P: 34 MT: 139 QRS: -16 QRSD: 89 T: 45 QT: 284 QTc: 412 Interpretive Statements SINUS TACHYCARDIA WITH OCCASIONAL SUPRAVENTRICULAR PREMATURE COMPLEXES INCOMPLETE RIGHT BUNDLE BRANCH BLOCK COMPARED TO ECG 05/30/2023 17:50:00 NO SIGNIFICANT CHANGES Electronically Signed On 05-31-2023 15:05:47 EMERGENCY ROOM PHYSICIAN by Ynes Piña M.D.
[2023-05-30 19:09] LABS: Basophils Percent Auto 0.2 % (0.2-1.2); Eosinophils Percent Auto 0.1 % (0-4.4); Hematocrit 49.2 % (42.0-52.0); Immature Granulocyte Absolute 0.04 K/mm3 (0.00-0.031); Immature Granulocyte Percent A 0.3 % (0-0.5); Lymphocytes Absolute Auto 0.44 K/mm3 (0.9-3.2); Lymphocytes Percent Auto 3.3 % (18.3-44.2); Mean Corpuscular HGB Conc 32.5 g/dl (32-36); Mean Corpuscular Hemoglobin 28.4 pg (26-34); Mean Corpuscular Volume 87.4 fl (80-100); Mean Platelet Volume 9.8 fl (7.4-10.4); Monocytes Percent Auto 7.8 % (2.6-8.5); Neutrophils Absolute Auto 11.6 K/mm3 (1.3-6.7); Neutrophils Percent Auto 88.3 % (45.5-73.1); Platelet Count Result 233 k/mm3 (150-375); Red Blood Count 5.63 M/mm3 (4.6-6.20); Red Cell Distribution Width 14.9 % (11.5-14.5); White Blood Count 13.1 K/mm3 (4.5-10.0)
--- NOTE | 2023-05-30 19:15 | PC.NURSE ---
Assumed care of pt from SAURABH Ceballos at this time. Pt resting comfortably in bed w call light within reach. at bedside.
[2023-05-30 19:28] LABS: Alanine Aminotransferase 22 U/L (6-50); Alkaline Phosphatase 60 U/L (38-126); Anion Gap 6 mmol/L (8-16); Aspartate Amino Transferase 30 U/L (17-59); Bilirubin,Total 0.5 mg/dL (0.2-1.3); Blood Urea Nitrogen 17 mg/dL (9-20); Calcium 9.3 mg/dL (8.4-10.2); Carbon Dioxide 29 mmol/L (22-30); Chloride 98 mmol/L (98-107); Estimated CRCL calculation 61 ml/min; Estimated Glomerular Filt Rate > 60; Glucose 110 mg/dL (65-110); Potassium 3.9 mmol/L (3.4-5.0); Sodium 133 mmol/L (137-145)
--- NOTE | 2023-05-30 19:56 | PC.NURSE ---
Elsy Stafford, attempted covid swab on pt. Pt stated he had one done at [facility], which was negative, and didnt want to get another one done.
[2023-05-30] MEDS: SODIUM CHLORIDE 0.9% IV 1,000 ML 999 ML IV CONT ×2 (20:07→21:31)
--- NOTE | 2023-05-30 21:20 | ED.SOB ---
HPI - SOB/Dyspnea General Chief Complaint: Shortness of Breath/Dyspnea Stated Complaint: increased HR low o2 Time Seen by Provider: 05/30/23 19:07 History of Present Illness HPI Narrative: Patient is a 68-year-old male presenting with shortness of breath. States that he was treated with antibiotics earlier this month for a presumed sinus infection. States that he got a little bit better but unfortunately his symptoms then returned. He has had a cough as well shortness of breath and nasal congestion. He went to urgent care earlier today who found him to be hypoxic and tachycardic so they sent him here for further evaluation. Patient denies chest pain, lightheadedness, palpitations, leg swelling. States that he does have some chronic swallowing problems related to radiation for throat cancer. Related Data Home Medications Medication Instructions Recorded Confirmed ergocalciferol (vitamin D2) 1,250 1 unit PO DIRECTED 05/23/23 05/31/23 mcg (50,000 unit) capsule latanoprost 0.005 % eye drops 1 drp EACH EYE HS 05/23/23 05/31/23 levothyroxine 88 mcg tablet 88 mcg PO DAILY 05/23/23 05/31/23 docusate sodium 100 mg capsule 100 mg PO DAILY 05/30/23 05/31/23 Allergies Allergy/AdvReac Type Severity Reaction Status Date / Time No Known Allergies Allergy Verified 05/30/23 11:20 Review of Systems Review of Systems: All systems reviewed & are unremarkable except as noted in HPI and below PMFSH Past Medical History Medical History (Updated 06/04/23 @ 17:42 by Renita Potter MD) COPD (chronic obstructive pulmonary disease) Hypothyroid Multifocal pneumonia Second hand smoke exposure Tonsil cancer Surgical History Surgical History Hx of tonsillectomy Family History Family History Mother Lung cancer Social History Social History Smoking status: Never smoker Second hand tobacco smoke exposure: No Alcohol intake: current Substance use: never Do You Feel Safe in your Home?: Yes Lack of Transportation: No Lack of Food: Never True Current Housing: I Have Housing Concerned About Future Housing: No Difficulty Paying Gas/Electric Bills: No Difficulty Paying for Meds: No Currently Unemployed: No Education: Master's Degree or Higher Difficulty w/ Childcare or Family Care: No Living arrangements: with family Occupation/Education: retired Gender identity (if verbalized by the patient): Male Spiritual care concerns: No Exam Narrative: GENERAL: Nontoxic, in no acute distress, pleasant cooperative HEAD: Normocephalic, atraumatic. EYES: PERRLA and EOMI. ENT: +nasal congestion NECK: Supple. CHEST: Coarse breath sounds bilaterally, saturating adequately on 2 L nasal cannula HEART: Tachycardic, regular rhythm ABDOMEN: Soft, nontender, nondistended EXTREMITIES: Normal range of motion. No edema. SKIN: Warm, dry, no rash. NEURO: No focal deficits. Alert and oriented x3. PSYCH: Normal mood and affect. Course Vital Signs Vital signs: Vital Signs Temperature 100.6 F H 05/30/23 18:34 Pulse Rate 134 H 05/30/23 18:34 Respiratory Rate 24 H 05/30/23 18:34 Blood Pressure 151/74 H 05/30/23 18:34 Pulse Oximetry 89 L 05/30/23 18:34 Oxygen Delivery Room Air 05/30/23 18:34 Temperature 97.9 F 06/02/23 05:17 Pulse Rate 94 06/02/23 08:00 Respiratory Rate 20 06/02/23 07:25 Blood Pressure 135/83 06/02/23 05:17 Pulse Oximetry 94 06/02/23 08:00 Oxygen Delivery Room Air 06/02/23 08:00 Oxygen Flow Rate 1 06/02/23 07:15 MDM - SOB/Dyspnea MDM Narrative Medical decision making narrative: 68-year-old male presenting with shortness of breath and cough. Patient is tachycardic, febrile, hypoxic on arrival. Patient placed on 2 L nasal cannula and saturating well now. Exam
[2023-05-30] MEDS: PIPERACILLN/TAZ 3.375GM/NS50ML 3.375 GM/50 ML BAG IVPB (21:31)
[2023-05-30] MEDS: IPRATROPIUM BR 0.02% INH SOLN 0.5 MG/2.5 ML VIAL INHALATION (21:40)
[2023-05-30] MEDS: ALBUTEROL SULFATE NEB 2.5 MG/3 ML INH 10 MG INHALATION (21:40)
[2023-05-30] MEDS: DOXYCYCLINE 100 MG/NS 100 ML 100 MG/100 ML BAG IVPB (22:05)
[2023-05-30 23:24] LABS: Influenza A QL RT-PCR Negative (Negative); Influenza B QL RT-PCR Negative (Negative); RSV RNA, RT-PCR Negative (Negative); SARS-CoV-2 RNA PCR Negative (Negative)
[2023-05-31] VITALS (23 sets, daily range): BP systolic 123–148; BP diastolic 66–84; PULSE 96–127; RESP 19–22; TEMP 36.7–38.8; O2SAT 93–100
--- NOTE | 2023-05-31 00:01 | ADMGEN ---
This patient, Venkatesh Olivas, was admitted to [facility] Surg Room 314-01. Patient/family oriented to hospital policies and general routines including ID bracelet, bed and alarms, visiting hours, pain management, procedures, bathroom and other care routines, personal items, smoking policy, room service/diet, and visiting hours. Information on how to activate the Rapid Response Team has been discussed. Patient/Family are encouraged to report perceived risks to care and to ask questions if they do not understand what they are told or what they should do.
[2023-05-31] MEDS: IPRATROPIUM 0.5 MG/ALBUTEROL SULFATE 2.5 MG AMPUL.NEB 3 ML INHALATION ×4 (02:27→21:12)
[2023-05-31] MEDS: ACETAMINOPHEN 500 MG TABLET 1000 MG PO ×2 (03:28→13:50)
--- NOTE | 2023-05-31 14:16 | PM.IMPN ---
Subjective Date/time seen: 05/31/23 14:16 Interval history: This is a pleasant 68-year-old white male with a history of tonsil cancer status post tonsillectomy and radiation with resultant hypothyroidism and chronic cough and mucus production and obstructive lung disease. He wears a CPAP at night. He reports he has had a recurrent sinus infection and received 20 day treatment of Augmentin starting April 26 but then his symptoms returned. He returns reporting fever sinus congestion headache shortness of breath cough with green sputum production. In the ER the patient was given Zosyn. Review of Systems Review of Systems: All systems reviewed & are unremarkable except as noted in HPI and below (Subjective) Exam Const: General: comfortable and no acute distress Other: A&O x3 HENMT: Mouth: Yes moist mucous membranes Other: Yellow colored sinus drainage coating the oropharynx Eyes: Pupils: Equal, round and reactive pupils present Neck: Neck: supple Resp: Auscultation: rhonchi Objective Data Vital Signs Vital Signs: Vital Signs - 24 hr 05/30/23 18:34 05/30/23 18:43 05/30/23 18:45 Temperature 100.6 F H Pulse Rate 134 H Respiratory Rate 24 H Blood Pressure 151/74 H Pulse Oximetry 89 L 89 L 95 Oxygen Delivery Room Air Nasal Cannula Nasal Cannula Oxygen Flow Rate 2 2 05/30/23 19:00 05/30/23 19:15 05/30/23 19:33 Temperature Pulse Rate 123 H 121 H 118 H Respiratory Rate 23 H 20 21 H Blood Pressure 128/79 130/79 Pulse Oximetry 94 95 94 Oxygen Delivery Oxygen Flow Rate 05/30/23 20:08 05/30/23 20:46 05/30/23 21:06 Temperature Pulse Rate 111 H 105 H 98 Respiratory Rate 23 H 21 H 19 Blood Pressure 108/77 127/74 121/76 Pulse Oximetry 95 97 96 Oxygen Delivery Oxygen Flow Rate 05/30/23 21:40 05/30/23 21:46 05/31/23 00:05 Temperature 98.6 F Pulse Rate 103 H 99 102 H Respiratory Rate 24 H 14 22 H Blood Pressure 106/78 137/73 Pulse Oximetry 98 100 Oxygen Delivery Oxygen Flow Rate 05/31/23 02:30 05/31/23 02:36 05/31/23 02:40 Temperature Pulse Rate 97 99 Respiratory Rate 20 20 Blood Pressure Pulse Oximetry 94 Oxygen Delivery Nasal Cannula Oxygen Flow Rate 2 02/07/24 03:05 05/31/23 03:28 05/31/23 04:00 Temperature 99.9 F H Pulse Rate 121 H Respiratory Rate Blood Pressure Pulse Oximetry 94 Oxygen Delivery Nasal Cannula Oxygen Flow Rate 2 05/31/23 06:00 05/31/23 07:48 05/31/23 07:48 Temperature 100.0 F H Pulse Rate 113 H 98 Respiratory Rate 22 H 20 Blood Pressure 123/67 Pulse Oximetry 93 94 Oxygen Delivery Nasal Cannula Oxygen Flow Rate 2 05/31/23 08:03 05/31/23 08:00 05/31/23 12:00 Temperature Pulse Rate 100 98 109 H Respiratory Rate 20 Blood Pressure Pulse Oximetry Oxygen Delivery Oxygen Flow Rate 05/31/23 13:38 05/31/23 13:47 05/31/23 13:50 Temperature 102 F H Pulse Rate 96 127 H Respiratory Rate 20 22 H Blood Pressure Pulse Oximetry Oxygen Delivery Oxygen Flow Rate Intake/Output Intake/Output: Intake & Output 05/28/23 05/29/23 05/30/23 05/31/23 23:59 23:59 23:59 23:59 Intake Total 2150 930 Balance 2150 930 Meds/Results Medications: Active Medications Generic Name Dose Route Start Last Admin Trade Name Freq PRN Reason Stop Dose Admin Acetaminophen 1,000 mg 05/31/23 03:08 05/31/23 13:50 Acetaminophen 500 Mg Tablet PO 1,000 mg Q6H PRN Administration Mild Pain (1-3) or Fever Albuterol/Ipratropium 3 ml 05/31/23 02:00 05/31/23 13:36 Ipratropium 0.5 Mg/Albuterol Sulfate 2.5 Mg Ampul.Neb 3 Ml INHALATION 3 ml Q6HRT HERBER Administration Azithromycin 250 mg 06/01/23 09:00 Azithromycin 250 Mg Tablet PO 06/04/23 09:01 DAILY [facility] Enoxaparin Sodium 40 mg 06/01/23 09:00 Enoxaparin 40 Mg/0.4 Ml Syringe SUB-Q DAILY [facility] Guaifenesin 1,200 mg 05/31/23 21:00 Guaifenesin
--- NOTE | 2023-05-31 14:32 | PM.IMHP ---
H&P: HPI History of Present Illness Date/Time: 05/31/23 14:32 Chief Complaint: Fever Narrative: This is a pleasant 68-year-old white male with a history of tonsil cancer status post tonsillectomy and radiation with resultant hypothyroidism and chronic cough and mucus production and obstructive lung disease. He wears a CPAP at night. He reports he has had a recurrent sinus infection and received 20 day treatment of Augmentin starting April 26 but then his symptoms returned. He returns reporting fever sinus congestion headache shortness of breath cough with green sputum production. In the ER the patient was given Zosyn. Review of Systems Review of Systems: All systems reviewed & are unremarkable except as noted in HPI and below (Subjective) [facility] Past Medical History Medical History (Updated 05/31/23 @ 14:24 by Lissette King MD) COPD (chronic obstructive pulmonary disease) Hypothyroid Second hand smoke exposure Tonsil cancer Surgical History Surgical History Hx of tonsillectomy Family History Family History Mother Lung cancer Social History Social History Smoking status: Never smoker Second hand tobacco smoke exposure: No Alcohol intake: current Substance use: never Do You Feel Safe in your Home?: Yes Lack of Transportation: No Lack of Food: Never True Current Housing: I Have Housing Concerned About Future Housing: No Difficulty Paying Gas/Electric Bills: No Difficulty Paying for Meds: No Currently Unemployed: No Education: Master's Degree or Higher Difficulty w/ Childcare or Family Care: No Living arrangements: with family Occupation/Education: retired Gender identity (if verbalized by the patient): Male Spiritual care concerns: No Meds Home Medications and Allergies Home Medications Medication Instructions Recorded Confirmed Type ergocalciferol (vitamin D2) 1,250 1 unit PO DIRECTED 05/23/23 05/31/23 History mcg (50,000 unit) capsule latanoprost 0.005 % eye drops 1 drp EACH EYE HS 05/23/23 05/31/23 History levothyroxine 88 mcg tablet 88 mcg PO DAILY 05/23/23 05/31/23 History docusate sodium 100 mg capsule 100 mg PO DAILY 05/30/23 05/31/23 History Allergies Allergy/AdvReac Type Severity Reaction Status Date / Time No Known Allergies Allergy Verified 05/30/23 11:20 Vital Signs Vital Signs - 24 hr 05/30/23 18:34 05/30/23 18:43 05/30/23 18:45 Temperature 100.6 F H Pulse Rate 134 H Respiratory Rate 24 H Blood Pressure 151/74 H Pulse Oximetry 89 L 89 L 95 Oxygen Delivery Room Air Nasal Cannula Nasal Cannula Oxygen Flow Rate 2 2 05/30/23 19:00 05/30/23 19:15 05/30/23 19:33 Temperature Pulse Rate 123 H 121 H 118 H Respiratory Rate 23 H 20 21 H Blood Pressure 128/79 130/79 Pulse Oximetry 94 95 94 Oxygen Delivery Oxygen Flow Rate 05/30/23 20:08 05/30/23 20:46 05/30/23 21:06 Temperature Pulse Rate 111 H 105 H 98 Respiratory Rate 23 H 21 H 19 Blood Pressure 108/77 127/74 121/76 Pulse Oximetry 95 97 96 Oxygen Delivery Oxygen Flow Rate 05/30/23 21:40 05/30/23 21:46 05/31/23 00:05 Temperature 98.6 F Pulse Rate 103 H 99 102 H Respiratory Rate 24 H 14 22 H Blood Pressure 106/78 137/73 Pulse Oximetry 98 100 Oxygen Delivery Oxygen Flow Rate 05/31/23 02:30 05/31/23 02:36 05/31/23 02:40 Temperature Pulse Rate 97 99 Respiratory Rate 20 20 Blood Pressure Pulse Oximetry 94 Oxygen Delivery Nasal Cannula Oxygen Flow Rate 2 05/31/23 03:05 05/31/23 03:28 05/31/23 04:00 Temperature 99.9 F H Pulse Rate 121 H Respiratory Rate Blood Pressure Pulse Oximetry 94 Oxygen Delivery Nasal Cannula Oxygen Flow Rate 2 05/31/23 06:00 05/31/23 07:48 05/31/23 07:48 Temperature 100.0 F H Pulse R
[2023-05-31] MEDS: AZITHROMYCIN 500 MG/NS 250 ML 500 MG/250 ML BAG 250 MG IVPB (14:45)
[2023-05-31] MEDS: cefTRIAXone 2 GM/NS 100 ML 2 GM/100 ML BAG IVPB (16:06)
[2023-05-31 16:27] LABS: MRSA (PCR) NOT DETECTED (NOT DETECTE)
[2023-05-31] MEDS: VANCOMYCIN 2,000 MG/NS 500 ML 2,000 MG/500 ML BAG 250 MG IVPB (16:52)
[2023-05-31] MEDS: guaiFENesin 12 HR 600 MG TABCR 1200 MG PO (20:21)
[2023-06-01] VITALS (15 sets, daily range): BP systolic 118–142; BP diastolic 71–93; PULSE 89–100; RESP 16–22; TEMP 36.2–36.9; O2SAT 91–97
[2023-06-01] MEDS: LEVOTHYROXINE SODIUM 88 MCG TABLET PO (05:06)
[2023-06-01 06:58] LABS: Basophils Percent Auto 0.3 % (0.2-1.2); Eosinophils Percent Auto 0.3 % (0-4.4); Hemoglobin 14.1 g/dL (14.0-18.0); Immature Granulocyte Absolute 0.04 K/mm3 (0.00-0.031); Immature Granulocyte Percent A 0.3 % (0-0.5); Lymphocytes Absolute Auto 0.94 K/mm3 (0.9-3.2); Lymphocytes Percent Auto 7.9 % (18.3-44.2); Mean Corpuscular Hemoglobin 28.3 pg (26-34); Mean Corpuscular Volume 88.4 fl (80-100); Mean Platelet Volume 9.9 fl (7.4-10.4); Monocytes Absolute Auto 1.1 K/mm3 (0.1-0.6); Neutrophils Absolute Auto 9.8 K/mm3 (1.3-6.7); Neutrophils Percent Auto 82.2 % (45.5-73.1); Platelet Count Result 192 k/mm3 (150-375); Red Blood Count 4.98 M/mm3 (4.6-6.20); Red Cell Distribution Width 15.1 % (11.5-14.5); White Blood Count 11.9 K/mm3 (4.5-10.0)
[2023-06-01 07:01] LABS: Anion Gap 3 mmol/L (8-16); Blood Urea Nitrogen 12 mg/dL (9-20); Calcium 8.5 mg/dL (8.4-10.2); Carbon Dioxide 31 mmol/L (22-30); Chloride 102 mmol/L (98-107); Estimated CRCL calculation 68 ml/min; Estimated Glomerular Filt Rate > 60; Glucose 91 mg/dL (65-110); Magnesium 2.1 mg/dL (1.6-2.3); Sodium 136 mmol/L (137-145)
[2023-06-01] MEDS: IPRATROPIUM 0.5 MG/ALBUTEROL SULFATE 2.5 MG AMPUL.NEB 3 ML INHALATION ×3 (07:54→20:39)
[2023-06-01] MEDS: AZITHROMYCIN 250 MG TABLET PO (08:29)
[2023-06-01] MEDS: VANCOMYCIN 1,250 MG/NS 250 ML 1,250 MG/250 ML BAG 166.67 MG IVPB (08:33)
[2023-06-01] MEDS: cefTRIAXone 2 GM/NS 100 ML 2 GM/100 ML BAG IVPB (11:15)
--- NOTE | 2023-06-01 13:15 | PM.IMPN ---
Progress Note: A&P Assessment and Plan (1) Second hand smoke exposure: Code(s): Z77.22 - Contact with and (suspected) exposure to environmental tobacco smoke (acute) (chronic) Status: Acute (2) Febrile illness: Code(s): R50.9 - Fever, unspecified Status: Acute (3) Acute hypoxemic respiratory failure: Code(s): J96.01 - Acute respiratory failure with hypoxia Status: Acute (4) Hypothyroid: Code(s): E03.9 - Hypothyroidism, unspecified Status: Acute (5) Hx of tonsillectomy: Code(s): Z90.89 - Acquired absence of other organs Status: Acute (6) COPD (chronic obstructive pulmonary disease): Code(s): J44.9 - Chronic obstructive pulmonary disease, unspecified Status: Acute (7) Sepsis: Code(s): A41.9 - Sepsis, unspecified organism Status: Acute (8) Multifocal pneumonia: Code(s): J18.9 - Pneumonia, unspecified organism Status: Acute Plan This is a pleasant 68-year-old white male with a history of tonsil cancer status post tonsillectomy and radiation with resultant hypothyroidism and chronic cough and mucus production and obstructive lung disease.? He wears a CPAP at night.? He reports he has had a recurrent sinus infection and received 20 day treatment of Augmentin starting April 26 but then his symptoms returned.? He returns reporting fever sinus congestion headache shortness of breath cough with green sputum production.? In the ER the patient was given Zosyn. On 05/31 the patient is febrile to 102 F and requires 2 L nasal cannula.? He has diffuse rhonchi.? In the setting of his chronic cough and mucus production and previous radiation to the pharynx as well as evidence of obstruction on PFT, we will obtain CT angiogram to further assess what needs to be treated such as mucus plugging or pulmonary embolism. -start ceftriaxone and azithromycin for community-acquired pneumonia.? Monitor his acute sinusitis.? Vancomycin will be added today as well given the severity of his lung exam.? This can be deescalated as he improves.? Blood cultures sputum cultures Legionella and pneumococcal antigen pending.? Start guaifenesin as well for his excessive mucus production and relative inability to expectorate.? Continue scheduled nebs.? He does have long-term exposure to secondhand smoke.? Monitor leukocytosis.? His hematuria on urinalysis should be followed up with Urology in the outpatient setting.? Continue CPAP at night.? Continue levothyroxine. On 06/01/2023 CTA chest on 05/31 demonstrating no pulmonary embolus but multifocal pneumonia right lower lobe nodule which needs follow-up CT in 3 months and bilateral hilar and mediastinal lymphadenopathy which is likely reactive. He remains on 1 L nasal cannula dropping to 89% O2 saturation on room air. His symptomatology is improved and his leukocytosis is improved improved. However he still in sepsis without shock with tachycardia leukocytosis and hypoxia. Continue ceftriaxone and azithromycin. MRSA nares PCR negative however considering this multifocal pneumonia will continue vancomycin for at least another day. Blood cultures and sputum cultures so far preliminary no growth to date. He reports large mucus production for a long time and chronic sinusitis. Will start loratadine 10 mg p.o. q.day. continue nebs scheduled. Continue guaifenesin FEN:? Saline lock IV.? Regular diet. GI prophylaxis:? None indicated DVT prophylaxis:? Lovenox Lines:? Peripheral IV Code Status:? Full code Dispo:? Stable Subjective Date/time seen: 06/01/23 13:15 Interval history: No acute overnight events. The patient denies shortness of breaths and is very apprehensive to go home. He thinks he does not need oxygen however we tested his pulse ox with nursing room and it demonstrates a 89 % on room air. Review of Systems Review of Systems: All systems reviewed & are unremarkable except as noted in HPI and below (Subjective) E
[2023-06-01] MEDS: LORATADINE 10 MG TABLET PO (14:22)
[2023-06-01] MEDS: guaiFENesin 12 HR 600 MG TABCR 1200 MG PO (21:15)
[2023-06-01] MEDS: LATANOPROST 0.005% OP SOLN 2.5 ML BTL 1 DROP EACH EYE (21:16)
[2023-06-02] VITALS (7 sets, daily range): BP systolic 135; BP diastolic 83; PULSE 82–94; RESP 16–20; TEMP 36.6; O2SAT 93–96
[2023-06-02 02:00] LABS: Basophils Percent Auto 0.2 % (0.2-1.2); Eosinophils Absolute Auto 0.1 K/mm3 (0-0.3); Eosinophils Percent Auto 0.9 % (0-4.4); Hematocrit 43.6 % (42.0-52.0); Hemoglobin 13.7 g/dL (14.0-18.0); Immature Granulocyte Absolute 0.03 K/mm3 (0.00-0.031); Immature Granulocyte Percent A 0.3 % (0-0.5); Lymphocytes Absolute Auto 0.86 K/mm3 (0.9-3.2); Lymphocytes Percent Auto 9.9 % (18.3-44.2); Mean Corpuscular HGB Conc 31.4 g/dl (32-36); Mean Corpuscular Hemoglobin 27.9 pg (26-34); Mean Corpuscular Volume 88.8 fl (80-100); Mean Platelet Volume 9.5 fl (7.4-10.4); Monocytes Absolute Auto 0.8 K/mm3 (0.1-0.6); Monocytes Percent Auto 9.2 % (2.6-8.5); Neutrophils Absolute Auto 6.9 K/mm3 (1.3-6.7); Neutrophils Percent Auto 79.5 % (45.5-73.1); Platelet Count Result 192 k/mm3 (150-375); Red Blood Count 4.91 M/mm3 (4.6-6.20); White Blood Count 8.7 K/mm3 (4.5-10.0)
[2023-06-02 02:11] LABS: Anion Gap 4 mmol/L (8-16); Blood Urea Nitrogen 12 mg/dL (9-20); Calcium 8.5 mg/dL (8.4-10.2); Carbon Dioxide 31 mmol/L (22-30); Chloride 101 mmol/L (98-107); Estimated CRCL calculation 75 ml/min; Estimated Glomerular Filt Rate > 60; Glucose 88 mg/dL (65-110); Magnesium 2.1 mg/dL (1.6-2.3); Sodium 136 mmol/L (137-145)
[2023-06-02 02:18] LABS: Vancomycin Trough < 5.0 ug/mL (10.0-20.0)
[2023-06-02] MEDS: IPRATROPIUM 0.5 MG/ALBUTEROL SULFATE 2.5 MG AMPUL.NEB 3 ML INHALATION (02:18)
[2023-06-02 02:28] LABS: Procalcitonin 0.4 ng/mL
[2023-06-02] MEDS: VANCOMYCIN 1,750 MG/NS 500 ML 1,750 MG/500 ML BAG 250 MG IVPB (04:15)
[2023-06-02] MEDS: LEVOTHYROXINE SODIUM 88 MCG TABLET PO (06:25)
[2023-06-02] MEDS: guaiFENesin 12 HR 600 MG TABCR 1200 MG PO (08:16)
[2023-06-02] MEDS: LORATADINE 10 MG TABLET PO (08:16)
[2023-06-02] MEDS: AZITHROMYCIN 250 MG TABLET PO (08:17)
[2023-06-02] MEDS: cefTRIAXone 2 GM/NS 100 ML 2 GM/100 ML BAG IVPB (11:31)
--- NOTE | 2023-06-02 11:41 | PM.DS ---
DS: Admitting Diagnosis Discharge Date June 02, 2023 Admitting Diagnosis Shortness of breath DS: Discharge Diagnosis Discharge Diagnosis (1) Multifocal pneumonia: Code(s): J18.9 - Pneumonia, unspecified organism Status: Acute (2) Sepsis: Code(s): A41.9 - Sepsis, unspecified organism Status: Acute DS: Summary Hospital Course Hospital Course: This is a pleasant 68-year-old white male with a history of tonsil cancer status post tonsillectomy and radiation with resultant hypothyroidism and vocal cord paralysis with extra thoracic outlet obstruction and chronic cough/mucus production. The patient does wear CPAP at night but no oxygen. He reports having recurrent sinus issues and 20 days prior to admission received amoxicillin on April 26. He had fever sinus congestion headache shortness of breath but presented to [place] ER as shortness of breath worsened. He was found to have sepsis secondary to multifocal pneumonia accompanied by acute hypoxic respiratory failure. He was treated with ceftriaxone azithromycin and vancomycin. On 06/02/2023 the patient's lung exam is improved and he is breathing well on room air. Leukocytosis and tachycardia have resolved. Feels back to his baseline and is ready to be discharged home. He returned home in stable condition with another 7 days of Augmentin given his complicated lung and throat history. Have also prescribed him a daily Zyrtec as he has excessive mucus production and what appears to be chronic sinusitis. The patient is amenable and agreeable to this plan and he knows to follow up with his primary care doctor within 1 week and as well for hematuria. Should also follow up with his apparel cutter. The patient was focal during his admission Time Spent with Patient Time attestation: Total time spent providing and/or coordinating discharge services: Exam Const: General: comfortable and no acute distress Other: A&O x3 Eyes: Pupils: Equal, round and reactive pupils present Resp: Effort & Inspection: normal respiratory effort Auscultation: rales Cardio: Rate: tachycardic Rhythm: regular rhythm Heart sounds: no gallops, no murmurs and no rubs GI: GI Palp: Yes Soft to palpation and No Tenderness to palpation present (GI) Extrem: General: no edema DS: Data Data Completed and Pending Labs on day of discharge: Labs from last 24 hours 06/02/23 01:50 WBC 8.7 RBC 4.91 Hgb 13.7 L Hct 43.6 MCV 88.8 MCH 27.9 MCHC 31.4 L RDW 15.0 H Plt Count 192 MPV 9.5 Immature Gran % (Auto) 0.3 Neut % (Auto) 79.5 H Lymph % (Auto) 9.9 L Coffey % (Auto) 9.2 H Eos % (Auto) 0.9 Baso % (Auto) 0.2 Lymph # (Auto) 0.86 L Coffey # (Auto) 0.8 H Eos # (Auto) 0.1 Baso # (Auto) 0.0 Abs Immat Gran (auto) 0.03 Absolute Neuts (auto) 6.9 H Absolute Nucleated RBC 0.0 Nucleated RBC % 0.0 Sodium 136 L Potassium 4.0 Chloride 101 Carbon Dioxide 31 H Anion Gap 4 L BUN 12 Creatinine 0.80 Estim Creat Clear Calc 75 Estimated GFR > 60 Glucose 88 Calcium 8.5 Magnesium 2.1 Procalcitonin 0.4 Vancomycin Trough < 5.0 L Preliminary micro results at discharge 05/31/23 15:21 Sputum Culture - Preliminary Sputum 05/30/23 19:37 Blood Culture - Preliminary Blood 05/30/23 19:10 Blood Culture - Preliminary Blood Discharge Plan Discharge Attending physician on discharge: Lissette King Discharging Clinician: Lissette King Patient Disposition: Home, Self-Care Activity: august shower Diet: regular Patient Instructions: Antibiotic Form Stand Alone Forms: General Discharge Information Follow-up/Referrals: Wang,MD Imer [Primary Care Provider] - 1 Week (follow up on pneumonia and chronic conditions. follow up with pulmonology within 4 weeks) Discharge Medications: New Zyrtec 10 mg capsule 10 mg PO DAILY Qty: 30 0RF amoxicillin-pot clavulanate 875-125 mg tablet 1 tablet PO Q12H
[2023-06-03 04:54] LABS: Legionella pneumophila Ag Ur Not Detected (Not Detected)
[2023-06-03 05:33] LABS: Pneumococcal Antigen Urine Not Detected (Not Detected)
== END 2023-06-02 12:55 | disposition home or self-care (01) | DRG 871 ==
LOC: ANHED 19:28 → ANH3MEDSUR 23:40
PROVIDERS: Admitting Provider Internal Medicine; Emergency Provider Emergency Medicine; PCP Family Medicine; Visit Provider General Practice
DX: A41.9 Sepsis, unspecified organism (principal); J18.9 Pneumonia, unspecified organism; J96.01 Acute respiratory failure with hypoxia; J44.0 Chronic obstructive pulmonary disease with (acute) lower respiratory infection; J01.90 Acute sinusitis, unspecified; E03.9 Hypothyroidism, unspecified; Z77.22 Contact with and (suspected) exposure to environmental tobacco smoke (acute) (chronic); Z20.822 Contact with and (suspected) exposure to COVID-19; Z85.818 Personal history of malignant neoplasm of other sites of lip, oral cavity, and pharynx
CPT/HCPCS: 36415; 71045; 71275; 80048; 80053; 80202; 83605; 83735; 84145; 85025; 87040; 87070; 87205; 87426; 87449; 87637; 87641; 87804; 87899; 93005; 94640; 96360; 99285; A9270; J0456; J0696; J2543; J3370; J7030; Q9967

== ENCOUNTER 2023-06-21 00:27 | Day surgery (SDC) | payer MEDICARE, SELFPAY ==
[2023-05-30 11:19] VITALS: BMI 26.0
--- NOTE | 2023-06-19 10:36 | PC.NURSE ---
Patient called regarding upcoming procedure. Reviewed preop instructions, appointment times, and procedure prep.
--- NOTE | 2023-06-20 14:38 | PM.HPGS ---
History of Present Illness History of Present Illness Consent: Risks, benefits, and alternatives have been discussed and questions answered. Patient agrees to proceed with procedure. Chief complaint: neoplasm screening Narrative: Venkatesh Olivas is a 68 year old male referred for colon cancer screening. Review of Systems Review of Systems: All systems reviewed & are unremarkable except as noted in HPI and below PMFSH Past Medical History Medical History COPD (chronic obstructive pulmonary disease) Hypothyroid Multifocal pneumonia Second hand smoke exposure Tonsil cancer Surgical History Surgical History Hx of tonsillectomy Family History Family History Mother Lung cancer Social History Social History Smoking status: Never smoker Second hand tobacco smoke exposure: No Alcohol intake: current Substance use: never Do You Feel Safe in your Home?: Yes Lack of Transportation: No Lack of Food: Never True Current Housing: I Have Housing Concerned About Future Housing: No Difficulty Paying Gas/Electric Bills: No Difficulty Paying for Meds: No Currently Unemployed: No Education: Master's Degree or Higher Difficulty w/ Childcare or Family Care: No Living arrangements: with family Occupation/Education: retired Gender identity (if verbalized by the patient): Male Spiritual care concerns: No Meds Home Medications and Allergies Home Medications Medication Instructions Recorded Confirmed Type ergocalciferol (vitamin D2) 1,250 1 unit PO DIRECTED 05/23/23 06/21/23 History mcg (50,000 unit) capsule latanoprost 0.005 % eye drops 1 drp EACH EYE HS 05/23/23 06/21/23 History levothyroxine 88 mcg tablet 88 mcg PO DAILY 05/23/23 06/21/23 History docusate sodium 100 mg capsule 100 mg PO DAILY 05/30/23 06/21/23 History amoxicillin 875 mg-potassium 1 tablet PO Q12H 7 days #14 tabs 06/02/23 06/21/23 Rx clavulanate 125 mg tablet cetirizine 10 mg capsule (Zyrtec) 10 mg PO DAILY #30 caps 06/02/23 06/21/23 Rx Allergies Allergy/AdvReac Type Severity Reaction Status Date / Time No Known Allergies Allergy Verified 06/21/23 08:25 Exam Const: General: alert Orientation/consciousness: patient oriented x3 Resp: Auscultation: clear to auscultation bilaterally Cardio: Rhythm: regular rhythm GI: GI Palp: Yes Soft to palpation and No Tenderness to palpation present (GI) Neuro: General: patient oriented x3 Assessment and Plan Assessment and plan (1) Colon cancer screening: Code(s): Z12.11 - Encounter for screening for malignant neoplasm of colon Status: Acute Assessment and Plan: Colonoscopy with possible biopsy or polypectomy or cautery or injection of substances.
[2023-06-21 08:28] VITALS: BP 140/85; PULSE 98; RESP 18; TEMP 36.3; O2SAT 95
[2023-06-21] MEDS: LACTATED RINGERS 1,000 ML 150 ML IV CONT (08:38)
--- NOTE | 2023-06-21 08:58 | WPDANESEPPF ---
Anes - Initial Pre Proc Eval Procedure: Operation Date: 06/21/23 09:30 Proposed Procedures p Screening Colonoscopy - Cresencio Perry MD Date/Time: 06/21/23 08:58 Surgeon: Cresencio Perry MD Pre Op Diagnosis: neoplasm screening Patient Data Age: 68 Gender: M Height: 1.75 m Weight: 76.1 kg Last Vital Signs Temp 36.3 C L 06/21/23 08:28 Pulse 98 06/21/23 08:28 Resp 18 06/21/23 08:28 BP 140/85 06/21/23 08:28 Pulse Ox 95 06/21/23 08:28 O2 Del Method Room Air 06/21/23 08:28 Allergies Allergy/AdvReac Type Severity Reaction Status Date / Time No Known Allergies Allergy Verified 06/21/23 08:25 Home Medications Medication Instructions Recorded Confirmed Type ergocalciferol (vitamin D2) 1,250 1 unit PO DIRECTED 05/23/23 06/21/23 History mcg (50,000 unit) capsule latanoprost 0.005 % eye drops 1 drp EACH EYE HS 05/23/23 06/21/23 History levothyroxine 88 mcg tablet 88 mcg PO DAILY 05/23/23 06/21/23 History docusate sodium 100 mg capsule 100 mg PO DAILY 05/30/23 06/21/23 History amoxicillin 875 mg-potassium 1 tablet PO Q12H 7 days #14 tabs 06/02/23 06/21/23 Rx clavulanate 125 mg tablet cetirizine 10 mg capsule (Zyrtec) 10 mg PO DAILY #30 caps 06/02/23 06/21/23 Rx Patient hx anesthesia problems: none Family hx anesthesia problems: none Results Review: All pre-operative results and documents have been reviewed as part of the pre-operative evaluation. [facility] Past Medical History Medical History COPD (chronic obstructive pulmonary disease) Hypothyroid Multifocal pneumonia Second hand smoke exposure Tonsil cancer Surgical History Surgical History Hx of tonsillectomy Family History Family History Mother Lung cancer Social History Social History Smoking status: Never smoker Second hand tobacco smoke exposure: No Alcohol intake: current Substance use: never Do You Feel Safe in your Home?: Yes Lack of Transportation: No Lack of Food: Never True Current Housing: I Have Housing Concerned About Future Housing: No Difficulty Paying Gas/Electric Bills: No Difficulty Paying for Meds: No Currently Unemployed: No Education: Master's Degree or Higher Difficulty w/ Childcare or Family Care: No Living arrangements: with family Occupation/Education: retired Gender identity (if verbalized by the patient): Male Spiritual care concerns: No Anes - Eval Final PreProcedure Day of Procedure 06/21/23 08:58 Patient weight: normal Heart: regular rate and rhythm Lungs: clear to auscultation Airway: Mallampati scale class II and other (right neck dissection, radiation) Neurological: alert and oriented Last oral intake: >/= 8 hours ASA classification: III Emergent: no Anesthetic plan: proceed Anesthesia type and monitoring: general GIVS Results Review: All pre-operative results and documents have been reviewed as part of the pre-operative evaluation. Informed Consent: The patient's anesthetic plan and its attendant risks and benefits were discussed with the patient/family/POA. Questions were solicited and answers provided to the satisfaction of the patient/family/POA.
[2023-06-21] MEDS: SIMETHICONE ORAL SUSPENSION 20 MG/0.3 ML 30 ML BOTTLE 0.6 ML IRRIGATION (09:31)
[2023-06-21 09:38] VITALS: BP 113/72; PULSE 74; RESP 18; O2SAT 95
[2023-06-21 09:48] VITALS: BP 111/72; PULSE 73; RESP 18; O2SAT 96
[2023-06-21 09:58] VITALS: BP 124/80; PULSE 80; RESP 18; O2SAT 96
== END 2023-06-21 10:04 | disposition home or self-care (01) ==
PROVIDERS: PCP Family Medicine; Visit Provider Internal Medicine Gastroenterology
PROC: 0DJD8ZZ Inspection of Lower Intestinal Tract, Via Natural or Artificial Opening Endoscopic (ICD-10-PCS; CPT 45378; principal; 2023-06-21 09:30)
DX: Z12.11 Encounter for screening for malignant neoplasm of colon (principal); K57.30 Diverticulosis of large intestine without perforation or abscess without bleeding; K64.8 Other hemorrhoids; E03.9 Hypothyroidism, unspecified; Z85.818 Personal history of malignant neoplasm of other sites of lip, oral cavity, and pharynx
CPT/HCPCS: G0121; J2704; J7120

== ENCOUNTER → 2023-08-07 14:29 | Outpatient (REF) | payer MEDICARE, SELFPAY | LOC: ANHLAB 14:29 | PROVIDERS: PCP Family Medicine; Visit Provider Plastic Surgery | DX: C44.319 Basal cell carcinoma of skin of other parts of face (principal) | CPT/HCPCS: 88305 ==

== ENCOUNTER 2023-08-23 17:27 | Inpatient (IN) | payer MEDICARE, SELFPAY ==
[2023-08-23] VITALS (8 sets, daily range): BP systolic 108–157; BP diastolic 69–88; PULSE 108–119; RESP 22–28; TEMP 36.8–38.9; O2SAT 70–96; BMI 25.3
--- NOTE | ~2023-08-23 | XR_ITS ---
XR chest 1V portable DATE: 08/23/2023 18:29 INDICATION: Sudden onset of shortness of breath TECHNIQUE: Portable AP chest on 08/23/2023 at 1823 hours COMPARISON: None FINDINGS: Mild infiltrate or atelectasis in the lower lung zones, primarily involving the lower lobes , left greater than right. The lungs are otherwise clear. No pleural effusion or pulmonary vascular c ongestion or pneumothorax. Normal heart size. There is mild aortic unfolding. No hilar or mediastinal enlargement. IMPRESSION: Mild infiltrate or atelectasis in the lower lung zones, left greater than right Reviewed, dictated and finalized at location A. IMPRESSION: Mild infiltrate or atelectasis in the lower lung zones, left greate r than right
--- NOTE | ~2023-08-23 | XR_ITS ---
MODIFIED ESOPHAGRAM HISTORY: Aspiration pneumonia TECHNIQUE: Modified barium esophagram was performed on 08/25/2023. I administered fluoroscopy and perfo rmed the exam with speech pathologist. Patient was seated for lateral fluoroscopic imaging for inges tion of thin liquids, pudding, solids and quantified amounts, followed by thin liquids in uncontrolle d amounts. This was recorded on tape. A single fluoroscopic spot image was also recorded. The DAP for this procedure was 1.451 Gycm2. The amount of fluoroscopy time used during this procedure was 2.1 mi nutes. FINDINGS: Oral stage: Adequate function. Pharyngeal stage: Reduced laryngeal elevation, laryngeal adduction and tongue base retraction. There is both vallecular residue and piriform sinus residue. There is laryngeal penetration and silent aspi ration. Cervical/esophageal stage: Adequate function. IMPRESSION: Pharyngeal dysphagia with laryngeal penetration and silent aspiration. Please correlate with speech pathologist findings and specific feeding recommendations. Reviewed, dictated and finalized at location A. IMPRESSION: Pharyngeal dysphagia with laryngeal penetration and silent aspirati on. Please correlate with speech pathologist findings and specific feeding rec ommendations.
--- NOTE | ~2023-08-23 | CT_ITS ---
EXAMINATION: CT soft tissue neck chest w DATE: 08/24/2023 17:29 INDICATION: Tracheal stenosis. TECHNIQUE: Computed tomography (CT) of the neck and chest was performed with 75 mL Omnipaque-350 intr avenous contrast. The dose-length product was 916.52 mGy-cm. COMPARISON: Chest CT 05/31/2023, neck CT 07/26/2022 FINDINGS: CT NECK: There are likely changes of ocular lens replacement surgeries. There are no pathologically e nlarged lymph nodes. There is plaque in the proximal internal carotid arteries is 0% stenosis relativ e to normal distal artery lumen diameters. There is moderate cervical spondylosis. CT CHEST: There is mild scarring at the lung apices. There are airspace opacities in the lower lobes. There are groundglass opacities, centrilobular nodules, and tree-in-bud opacities in the lower lobes , right middle lobe, and lingula. These findings are consistent with pneumonia. There is mucous plugg ing in the lower lobes. No pleural effusion. The trachea is normal. The heart size is normal. No arturo cardial effusion. There is mild thoracic spondylosis. There is mild chronic anterior wedging of multi ple vertebral bodies. IMPRESSION: 1. Pneumonia in the inferior lungs. 2. No tracheal stenosis. 3. No evidence of metastatic disease. Reviewed, dictated and finalized at location E.
--- NOTE | 2023-08-23 17:39 | ECG_ITS ---
SEE SCANNED COPY FOR CONFIRMED REPORT. MTDD
[2023-08-23] MEDS: methylPREDNISolone SOD SUCC 125 MG VIAL IV PUSH (17:47)
[2023-08-23 17:50] LABS: Alveolar/Arterial O2 Gradient 597.2 mmHg; Base Excess ABG 0.9 mEq/l (+/-2.0); Fractional Inspired Oxygen 100 %; HCO3 ABG 25.7 mEq/l (22.0-26.0); PCO2 ABG 41.8 mmHg (35.0-45.0); PO2 FiO2 Ratio Arterial Blood 0.74 %; pH ABG 7.407 (7.350-7.450)
[2023-08-23 17:51] LABS: Device NON-REBREATHER MASK; Site Drawn RIGHT RADIAL
[2023-08-23 17:51] LABS: Basophils Absolute Auto 0.1 K/mm3 (0.0-0.1); Basophils Percent Auto 0.5 % (0.2-1.2); Eosinophils Absolute Auto 0.1 K/mm3 (0-0.3); Eosinophils Percent Auto 1.3 % (0-4.4); Hematocrit 52.4 % (42.0-52.0); Hemoglobin 16.7 g/dL (14.0-18.0); Immature Granulocyte Absolute 0.02 K/mm3 (0.00-0.031); Immature Granulocyte Percent A 0.2 % (0-0.5); Lymphocytes Absolute Auto 1.48 K/mm3 (0.9-3.2); Lymphocytes Percent Auto 14.3 % (18.3-44.2); Mean Corpuscular HGB Conc 31.9 g/dl (32-36); Mean Corpuscular Hemoglobin 28.4 pg (26-34); Mean Corpuscular Volume 89.3 fl (80-100); Mean Platelet Volume 9.9 fl (7.4-10.4); Monocytes Absolute Auto 0.4 K/mm3 (0.1-0.6); Monocytes Percent Auto 3.5 % (2.6-8.5); Neutrophils Absolute Auto 8.3 K/mm3 (1.3-6.7); Neutrophils Percent Auto 80.2 % (45.5-73.1); Platelet Count Result 255 k/mm3 (150-375); Red Blood Count 5.87 M/mm3 (4.6-6.20); Red Cell Distribution Width 16.2 % (11.5-14.5); White Blood Count 10.3 K/mm3 (4.5-10.0)
[2023-08-23] MEDS: ONDANSETRON INJ 4 MG/2 ML VIAL IV PUSH (17:53)
[2023-08-23] MEDS: ALBUTEROL SULFATE NEB 2.5 MG/3 ML INH 10 MG INHALATION (17:55)
[2023-08-23 17:59] LABS: Alanine Aminotransferase 23 U/L (6-50); Albumin Level 4.4 g/dL (3.5-5.1); Alkaline Phosphatase 60 U/L (38-126); Anion Gap 6 mmol/L (4-12); Aspartate Amino Transferase 36 U/L (17-59); Bilirubin,Total 0.6 mg/dL (0.2-1.3); Blood Urea Nitrogen 21 mg/dL (9-20); Calcium 8.7 mg/dL (8.4-10.2); Carbon Dioxide 30 mmol/L (22-30); Chloride 100 mmol/L (98-107); Estimated Glomerular Filt Rate 60; Glucose 113 mg/dL (65-110); Sodium 136 mmol/L (137-145)
[2023-08-23] MEDS: IPRATROPIUM 0.5 MG/ALBUTEROL SULFATE 2.5 MG AMPUL.NEB 3 ML INHALATION (18:00)
[2023-08-23 18:07] LABS: D Dimer 0.49 ug/mL (<0.48)
[2023-08-23 18:31] LABS: INR 0.9; Lactic Acid Reflex 2.1 mmol/L (0.7-2.0)
[2023-08-23 18:33] LABS: Magnesium 1.9 mg/dL (1.6-2.3)
[2023-08-23 18:44] LABS: NT Pro B Type Natriuretic Pept < 20 pg/mL (19.9-100); Troponin I < 0.012 ng/mL (0.000-0.034)
[2023-08-23 19:30] LABS: Appearance Urine Clear (Clear); Bilirubin Urine Negative (Negative); Blood Urine Negative (Negative); Color Urine Yellow (Yellow); Glucose Urine UA Negative (Negative); Ketones Urine Negative (Negative); Leukocyte Esterase Ur Negative LEU/UL (Negative); Nitrate Urine Negative (Negative); Protein Urine Negative (Negative); Specific Grav Ur 1.018 (1.001-1.035); Urobilinogen Urine 0.2 mg/dL (<2.0); pH Urine 5.5 (5.0-9.0)
[2023-08-23 19:36] LABS: Add Urine Microscopic? NO
[2023-08-23 20:05] LABS: Influenza A QL RT-PCR Negative (Negative); Influenza B QL RT-PCR Negative (Negative); RSV RNA, RT-PCR Negative (Negative); SARS-CoV-2 RNA PCR Negative (Negative)
--- NOTE | 2023-08-23 20:06 | ED.SOB ---
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 reports that he has these episodes periodically because of the sinus drainage and he is unable to clear because his throat. Patient denies any fever however he was having axial chills upon arrival to the ER. Denies any chest pain. No previous history of COPD or asthma CHF. He stated that he was in the hospital a month of May of this year for the same complaint. Upon arrival to the ER patient is to 70% room air MD elicited complaint: shortness of breath and cough Onset (ago): hour(s) (2) Timing: constant Severity: severe Exacerbating factors: nothing Relieving factors: oxygen Associated symptoms: denies other symptoms Related Data Home oxygen amount: none Home Medications Medication Instructions Recorded Confirmed ergocalciferol (vitamin D2) 1,250 1 unit PO DIRECTED 05/23/23 08/07/23 mcg (50,000 unit) capsule latanoprost 0.005 % eye drops 1 drp EACH EYE HS 05/23/23 08/07/23 levothyroxine 88 mcg tablet 88 mcg PO DAILY 05/23/23 08/07/23 docusate sodium 100 mg capsule 100 mg PO DAILY 05/30/23 08/07/23 Allergies Allergy/AdvReac Type Severity Reaction Status Date / Time No Known Allergies Allergy Verified 08/14/23 10:06 Review of Systems Review of Systems: All systems reviewed & are unremarkable except as noted in HPI and below Constitutional: Constitutional: Reports no additional constitutional complaints Eyes: Eyes: Reports no additional eye complaints ENT: Reports system reviewed and no additional complaints, except as documented Cardiovascular: Cardiovascular: Reports no additional cardiovascular complaints Respiratory: Respiratory: Reports as per HPI Musculoskeletal: Musculoskeletal: Reports no additional musculoskeletal complaints Neurologic: Reports system reviewed and no additional complaints, except as documented Psychiatric: Psychiatric: Reports no additional psychiatric complaints Endocrine: Endocrine: Reports no additional endocrine complaints Hematologic/Lymphatic: Hematologic/Lymphatic: Reports no additional hematologic/lymphatic complaints Allergic/Immunologic: Allergic/Immunologic: Reports no additional allergic/immunologic complaints PMF Past Medical History Medical History COPD (chronic obstructive pulmonary disease) Hypothyroid Multifocal pneumonia Second hand smoke exposure Tonsil cancer Surgical History Surgical History Hx of tonsillectomy Family History Family History Mother Lung cancer Social History Social History Smoking status: Never smoker Second hand tobacco smoke exposure: No Alcohol intake: current Substance use: never Do You Feel Safe in your Home?: Yes Lack of Transportation: No Lack of Food: Never True Current Housing: I Have Housing Concerned About Future Housing: No Difficulty Paying Gas/Electric Bills: No Difficulty Paying for Meds: No Currently Unemployed: No Education: Master's Degree or Higher Difficulty w/ Childcare or Family Care: No Living arrangements: with family Occupation/Education: retired Gender identity (if verbalized by the patient): Male Spiritual care concerns: No Exam Narrative: GENERAL: Well-appearing, anxious, in moderate respiratory distress HEAD:
--- NOTE | 2023-08-23 20:35 | PM.IMHP ---
H&P: HPI History of Present Illness Date/Time: 08/23/23 20:35 Chief Complaint: sob Narrative: this is a 68-year-old male with past medical history significant for head and neck cancer status post radiation, dysphagia, extrathoracic obstruction, chronic cough, chronic up this amount of secretion. Patient presents to the emergency room due to worsening shortness of breath, rigors, chills,worsening copious amount of green sputum. In emergency room patient was found to have an oxygen saturation of 70% initially placed on 6 L by nasal cannula increased to 10 L of oxygen and non-rebreather mask to 15 L non-rebreather mask achieved oxygen saturation of 90% according to patient his oxygen saturation is usually 95% on room air he wears a CPAP machine at nighttime. Preliminary workup was significant chest x-ray with mild infiltrate bilateral bases. XR chest 1V portable DATE: 08/23/2023 18:29 INDICATION: Sudden onset of shortness of breath? TECHNIQUE: Portable AP chest on 08/23/2023 at 1823 hours? COMPARISON: None? FINDINGS: Mild infiltrate or atelectasis in the lower lung zones, primarily involving the lower lobes, left greater than right. The lungs are otherwise clear. No pleural effusion or pulmonary vascular congestion or pneumothorax. Normal heart size. There is mild aortic unfolding. No hilar or mediastinal enlargement.? IMPRESSION: Mild infiltrate or atelectasis in the lower lung zones, left greater than right? Review of Systems Review of Systems: sob, copious amount of green sputum, rigors, chills, cough, dysphagia Constitutional: Constitutional: Reports chills and Reports fever(s) Eyes: Eyes: Denies change in vision ENT: Reports dysphagia and Denies odynophagia Cardiovascular: Cardiovascular: Denies chest pain, Denies leg edema, Denies radiating jaw, neck or arm pain and Denies palpitations Respiratory: Respiratory: Reports change in phlegm color, Reports chest congestion, Reports cough, Reports excessive phlegm production, Reports dyspnea and Reports wheezing Gastrointestinal: Gastrointestinal: Denies abdominal pain, Denies dyspepsia, Denies heartburn, Denies nausea and Denies vomiting Genitourinary: Genitourinary: Denies dysuria Musculoskeletal: Musculoskeletal: Denies arthralgias Integumentary/Breasts: Skin/Breast: Denies rash Neurologic: Denies focal weakness and Denies Sensory deficit (Neuro) Psychiatric: Psychiatric: Reports no additional psychiatric complaints and Reports as per HPI Endocrine: Endocrine: Denies cold intolerance, Denies fatigue, Denies flushing, Denies heat intolerance, Denies polyphagia, Denies polydipsia, Denies polyuria and Denies palpitations Hematologic/Lymphatic: Hematologic/Lymphatic: Reports no additional hematologic/lymphatic complaints and Reports as per HPI Allergic/Immunologic: Allergic/Immunologic: Reports no additional allergic/immunologic complaints and Reports as per HPI PMFSH Past Medical History Medical History COPD (chronic obstructive pulmonary disease) Hypothyroid Multifocal pneumonia Second hand smoke exposure Tonsil cancer Surgical History Surgical History Hx of tonsillectomy Family History Family History Mother Lung cancer Social History Social History Smoking status: Never smoker Second hand tobacco smoke exposure: No Alcohol intake: current Substance use: never Do You Feel Safe in your Home?: Yes Lack of Transportation: No Lack of Food: Never True Current Housing: I Have Housing Concerned About Future Housing: No Difficulty Paying Gas/Electric Bills: No Difficulty Paying for Meds: No Currently Unemployed: No Education: Master's Degree or Higher Difficulty w/ Childcare or Family Care: No Living arrang
[2023-08-23] MEDS: DOXYCYCLINE 100 MG/NS 100 ML 100 MG/100 ML BAG IVPB (20:59)
[2023-08-23] MEDS: SODIUM CHLORIDE 0.9% IV 1,000 ML 125 ML IV CONT (20:59)
[2023-08-23 21:08] LABS: Procalcitonin 0.1 ng/mL
[2023-08-23 21:18] LABS: Reflex Lactic Acid Yes or No Add Lactic
--- NOTE | 2023-08-23 21:30 | ADMGEN ---
This patient, Venkatesh Olivas, was admitted to IMU Room 214-01. Patient/family oriented to hospital policies and general routines including ID bracelet, bed and alarms, visiting hours, pain management, procedures, bathroom and other care routines, personal items, smoking policy, room service/diet, and visiting hours. Information on how to activate the Rapid Response Team has been discussed. Patient/Family are encouraged to report perceived risks to care and to ask questions if they do not understand what they are told or what they should do.
[2023-08-23 21:56] LABS: Lactic Acid 1.6 mmol/L (0.7-2.0)
[2023-08-23] MEDS: methylPREDNISolone SOD SUCC 125 MG VIAL 60 MG IV PUSH (23:37)
[2023-08-24] VITALS (22 sets, daily range): BP systolic 112–132; BP diastolic 63–76; PULSE 80–103; RESP 18–20; TEMP 36.1–36.6; O2SAT 91–97
[2023-08-24] MEDS: CEFEPIME 2 GM/NS 50 ML 2 GM/50 ML BAG IVPB ×2 (00:16→12:21)
[2023-08-24] MEDS: WATER FOR IRRIGATION, STERILE 1,000 ML BOTTLE 1000 ML (00:19)
[2023-08-24] MEDS: VANCOMYCIN 2,000 MG/NS 500 ML 2,000 MG/500 ML BAG 250 MG IVPB (01:35)
[2023-08-24] MEDS: IPRATROPIUM 0.5 MG/ALBUTEROL SULFATE 2.5 MG AMPUL.NEB 3 ML INHALATION ×4 (02:45→20:20)
[2023-08-24 04:12] LABS: Hematocrit 45.6 % (42.0-52.0); Hemoglobin 14.5 g/dL (14.0-18.0); Mean Corpuscular HGB Conc 31.8 g/dl (32-36); Mean Corpuscular Volume 88.2 fl (80-100); Mean Platelet Volume 10.3 fl (7.4-10.4); Platelet Count Result 223 k/mm3 (150-375); Red Blood Count 5.17 M/mm3 (4.6-6.20); Red Cell Distribution Width 15.5 % (11.5-14.5); White Blood Count 21.3 K/mm3 (4.5-10.0)
[2023-08-24 04:23] LABS: Anion Gap 7 mmol/L (4-12); Blood Urea Nitrogen 18 mg/dL (9-20); Calcium 8.6 mg/dL (8.4-10.2); Carbon Dioxide 24 mmol/L (22-30); Chloride 105 mmol/L (98-107); Estimated CRCL calculation 63 ml/min; Estimated Glomerular Filt Rate > 60; Glucose 179 mg/dL (65-110); Potassium 4.7 mmol/L (3.4-5.0); Sodium 136 mmol/L (137-145)
[2023-08-24 04:38] LABS: Band Neutrophils Percent 8 % (0-6); Lymphocytes Absolute Manual 0.21 K/mm3 (1.1-4.5); Monocytes Absolute Manual 1.91 K/mm3 (0.1-0.90); Monocytes Percent Manual 9 % (3-9); Neutrophils Absolute Manual 19.17 K/mm3 (1.3-6.7); Neutrophils Percent Manual 82 % (46-73); Platelet Estimate Adequate (Adequate); Total Cells Counted 100
[2023-08-24 04:39] LABS: Schistocytes None Seen
[2023-08-24 05:26] LABS: MRSA (PCR) NOT DETECTED (NOT DETECTE)
[2023-08-24] MEDS: LEVOTHYROXINE SODIUM 88 MCG TABLET PO (05:45)
[2023-08-24] MEDS: methylPREDNISolone SOD SUCC 125 MG VIAL 60 MG IV PUSH ×2 (05:47→12:20)
[2023-08-24] MEDS: SODIUM CHLORIDE 0.9% IV 1,000 ML 125 ML IV CONT (08:37)
--- NOTE | 2023-08-24 08:55 | PM.IMPN ---
Progress Note: A&P Assessment and Plan (1) History of radiation to head and neck region: Code(s): Z92.3 - Personal history of irradiation Status: Acute (2) Dysphagia: Code(s): R13.10 - Dysphagia, unspecified Status: Acute (3) Respiratory distress: Code(s): R06.03 - Acute respiratory distress Status: Acute (4) Pneumonia: Qualifiers: Laterality: bilateral Lung location: lower lobe of lung Pneumonia type: due to unspecified organism Qualified Code(s): J18.9 - Pneumonia, unspecified organism Code(s): J18.9 - Pneumonia, unspecified organism Status: Acute (5) Sepsis: Code(s): A41.9 - Sepsis, unspecified organism Status: Acute (6) COPD (chronic obstructive pulmonary disease): Code(s): J44.9 - Chronic obstructive pulmonary disease, unspecified Status: Acute (7) Acute hypoxemic respiratory failure: Code(s): J96.01 - Acute respiratory failure with hypoxia Status: Acute Plan Mr. 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 He is very active for his age, working out often. He uses a steamer mask Mucinex and Zyrtec to try to attenuate his mucus secretions. He reports his symptoms hit him suddenly at 3:00 p.m. on the day of admission 08/23/2023. In [facility] he was found to have pneumonia with acute hypoxic respiratory failure and given a 1 hour long neb treatment and antibiotics and subsequently admitted. Acute hypoxic respiratory failure -likely due to hospital-acquired/aspiration pneumonia -quad viral screen in ER negative -O2 saturation in ER 70%. Saturating well on 1 L nasal cannula. Wean as tolerated. -pulmonology consult. We appreciate their assistance. He has chronic mucus production recurrent pneumonias. Hospital-acquired pneumonia/aspiration -recurrent. Hospitalized in June 2023. -lung exam with diffuse congestion and rhonchi. -received Rocephin and doxycycline in the ER. Admitting hospitalist switched him to vancomycin cefepime, continued doxycycline -pending sputum culture Extrathoracic airway obstruction -pCO2 on admission 41.8. -he is currently on Solu-Medrol 60 mg IV q.6 hours and scheduled nebs. Likely DC the Solu-Medrol as his acute hypoxic respiratory failure appears to be more so due to pneumonia. Will defer to pulmonology. -he has chronic mucus production and cough. Continue Zyrtec and Mucinex. He uses a mouth steamer at home. Appreciate any further pulmonology recommendations -continue CPAP at night. Sepsis without shock -lactic acidosis on admission 2.1, now cleared. -white count on admission 10.3 now elevated to 21.3 with bandemia. Continue to trend and check procalcitonin in the morning to help guide antibiotic management. -pending sputum culture and blood cultures Chronic conditions -continue levothyroxine FEN: Regular diet. Saline lock IV. GI prophylaxis: Not indicated DVT prophylaxis: Lovenox 40 mg q.day Lines: Peripheral IV Code Status: Full code Dispo: Stable Subjective Date/time seen: 08/24/23 08:55 Interval history: No acute overnight events. Patient is on 1 L nasal cannula and rest in bed comfortably. He reports feeling much better when he came in, he is frustrated that he contracted pneumonia again. Review of Systems Review of Systems: All systems reviewed & are unremarkable except as noted in HPI and below (Subjective) Exam Const: General: comfortable and no acute distress Eyes: Pupils: Equal, round and reactive pupils present Neck: Neck: supple Resp: Effort & Inspection: normal respiratory effort Auscultation: rhonchi
[2023-08-24] MEDS: ENOXAPARIN 40 MG/0.4 ML SYRINGE SUB-Q (09:12)
[2023-08-24] MEDS: guaiFENesin 12 HR 600 MG TABCR 1200 MG PO ×2 (09:12→20:32)
[2023-08-24] MEDS: LORATADINE 10 MG TABLET PO (09:13)
--- NOTE | 2023-08-24 13:01 | PC.NURSE ---
Transferred from IMU to room 323-2 per wheelchair. No complaints voiced. Ambulatory in room. Steady on feet.
--- NOTE | 2023-08-24 15:09 | PM.CNPUL ---
Assessment and Plan Assessment and plan (1) History of radiation to head and neck region: Code(s): Z92.3 - Personal history of irradiation Status: Acute Assessment and Plan: tonsil cancer 2002, surgery and radiation; has had years of dysphagia, increased mucus, voice changes; (2) Dysphagia: Code(s): R13.10 - Dysphagia, unspecified Status: Acute Assessment and Plan: Long standing; he often regurgitates food after swallowing; food is streaked with whatever he ate. (3) Multifocal pneumonia: Code(s): J18.9 - Pneumonia, unspecified organism Status: Acute Assessment and Plan: bilateral lung bases on CXR; this is his second admission since May with aspiration due to his abnormal upper airway anatomy and function. He has been offered like a feeding tube and possibly an artificial airway but he wants to delay this as long as possible. He is a robust healthy person and does not want to give up speech and eating. 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 He states that he had pneumonia about 3 months ago in May. He is in good health other that these problems. He was active the day prior to admission, did yard work, and on debbie day of admission, had a work out. on August 22, while sitting at his computer, 2 or 3 pm, he had sudden onset of coughing, thick secretions, shortness of breath. His saturation dropped to 80% on his oximeter. His was outside in the yard, saw him coming outside pointing to his oximeter with low reading. She brought him to the ER, CXR had bilateral pneumonia; he required O2 for his hypoxemia. He was started on antibiotics, feels better, wants to go home. He is followed by Dr Yañez at [facility], had laryngoscopy recently, no abnormal tissue found. He has long standing dysphagia, throat clearing, moderately large amounts of mucus. He is a never smoker. He [place]. He says that he has abnormal movement of his vocal cords, and started using PAP earlier this year. He has severe regurgitation, even with mild movements such as leaning over to spit while brushing his teeth; this causes acid to roll up into his mouth. He says that Dr Waite did upper endoscopy about 2 years ago, didn't find an esophageal stricture which is why he had the endoscopy. Patient does not take acid blockers at home. Social: He is a retired health teacher. Never smoker. DATA * 08/23/23 CXR-Mild infiltrate or atelectasis in the lower lung zones, primarily involving the lower lobes, left greater than right. The lungs are otherwise clear. No pleural effusion or pulmonary vascular congestion or pneumothorax. Normal heart size. There is mild aortic unfolding. No hilar or mediastinal enlargement.? IMPRESSION: Mild infiltrate or atelectasis in the lower lung zones, left greater than right? * WBC increasing August 22 10.3k, August 23 wbc increase
--- NOTE | 2023-08-24 17:15 | PC.NURSE ---
To CT per wheelchair.
--- NOTE | 2023-08-24 17:29 | PC.NURSE ---
Return to room from CT per wheelchair.
[2023-08-24] MEDS: methylPREDNISolone SOD SUCC 40 MG VIAL IV PUSH (17:32)
[2023-08-24] MEDS: DOXYCYCLINE 100 MG/NS 100 ML 100 MG/100 ML BAG IVPB (20:31)
[2023-08-24] MEDS: LATANOPROST 0.005% OP SOLN 2.5 ML BTL 1 DROP EACH EYE (21:35)
[2023-08-25] MEDS: CEFEPIME 2 GM/NS 50 ML 2 GM/50 ML BAG IVPB ×2 (00:02→12:18)
[2023-08-25] MEDS: methylPREDNISolone SOD SUCC 40 MG VIAL IV PUSH ×3 (00:02→12:25)
[2023-08-25] MEDS: VANCOMYCIN 1,500 MG/NS 500 ML 1,500 MG/500 ML BAG 250 MG IVPB (00:44)
[2023-08-25 02:15] VITALS: PULSE 84; RESP 18
[2023-08-25] MEDS: IPRATROPIUM 0.5 MG/ALBUTEROL SULFATE 2.5 MG AMPUL.NEB 3 ML INHALATION ×2 (02:15→08:30)
[2023-08-25 02:24] VITALS: PULSE 86; RESP 18
[2023-08-25 05:14] VITALS: BP 132/77; PULSE 99; RESP 20; TEMP 36.4; O2SAT 98
[2023-08-25 06:04] LABS: Basophils Percent Auto 0.2 % (0.2-1.2); Eosinophils Absolute Auto 0.1 K/mm3 (0-0.3); Eosinophils Percent Auto 0.4 % (0-4.4); Hematocrit 42.1 % (42.0-52.0); Hemoglobin 13.4 g/dL (14.0-18.0); Immature Granulocyte Percent A 1.3 % (0-0.5); Lymphocytes Absolute Auto 0.41 K/mm3 (0.9-3.2); Lymphocytes Percent Auto 1.8 % (18.3-44.2); Mean Corpuscular HGB Conc 31.8 g/dl (32-36); Mean Corpuscular Hemoglobin 28.2 pg (26-34); Mean Corpuscular Volume 88.6 fl (80-100); Mean Platelet Volume 10.2 fl (7.4-10.4); Monocytes Percent Auto 4.3 % (2.6-8.5); Neutrophils Absolute Auto 20.6 K/mm3 (1.3-6.7); Platelet Count Result 218 k/mm3 (150-375); Red Blood Count 4.75 M/mm3 (4.6-6.20); Red Cell Distribution Width 16.1 % (11.5-14.5); White Blood Count 22.4 K/mm3 (4.5-10.0)
[2023-08-25 06:18] LABS: Anion Gap 5 mmol/L (4-12); Blood Urea Nitrogen 19 mg/dL (9-20); Calcium 8.8 mg/dL (8.4-10.2); Carbon Dioxide 26 mmol/L (22-30); Chloride 108 mmol/L (98-107); Estimated CRCL calculation 70 ml/min; Estimated Glomerular Filt Rate > 60; Glucose 155 mg/dL (65-110); Magnesium 2.1 mg/dL (1.6-2.3); Potassium 4.6 mmol/L (3.4-5.0); Sodium 139 mmol/L (137-145)
[2023-08-25] MEDS: LEVOTHYROXINE SODIUM 88 MCG TABLET PO (06:24)
[2023-08-25 07:33] LABS: Procalcitonin 10.6 ng/mL
[2023-08-25 08:30] VITALS: PULSE 103; RESP 20
[2023-08-25 08:31] VITALS: O2SAT 93
[2023-08-25 08:38] VITALS: PULSE 95; RESP 20
[2023-08-25] MEDS: guaiFENesin 12 HR 600 MG TABCR 1200 MG PO (08:48)
[2023-08-25] MEDS: ENOXAPARIN 40 MG/0.4 ML SYRINGE SUB-Q (08:49)
[2023-08-25] MEDS: LORATADINE 10 MG TABLET PO (08:49)
--- NOTE | 2023-08-25 11:59 | PM.IMPN ---
Progress Note: A&P Assessment and Plan (1) History of radiation to head and neck region: Code(s): Z92.3 - Personal history of irradiation Status: Acute (2) Dysphagia: Code(s): R13.10 - Dysphagia, unspecified Status: Acute (3) Respiratory distress: Code(s): R06.03 - Acute respiratory distress Status: Acute (4) Pneumonia: Qualifiers: Laterality: bilateral Lung location: lower lobe of lung Pneumonia type: due to unspecified organism Qualified Code(s): J18.9 - Pneumonia, unspecified organism Code(s): J18.9 - Pneumonia, unspecified organism Status: Acute (5) Sepsis: Code(s): A41.9 - Sepsis, unspecified organism Status: Acute (6) COPD (chronic obstructive pulmonary disease): Code(s): J44.9 - Chronic obstructive pulmonary disease, unspecified Status: Acute (7) Acute hypoxemic respiratory failure: Code(s): J96.01 - Acute respiratory failure with hypoxia Status: Acute Plan Mr. 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 He is very active for his age, working out often. He uses a steamer mask Mucinex and Zyrtec to try to attenuate his mucus secretions. He reports his symptoms hit him suddenly at 3:00 p.m. on the day of admission 08/23/2023. In [place] ER he was found to have pneumonia with acute hypoxic respiratory failure and given a 1 hour long neb treatment and antibiotics and subsequently admitted. Acute hypoxic respiratory failure -likely due to hospital-acquired/aspiration pneumonia. This is now resolved. What viral screen in ER negative. pending full report respiratory PCR panel -quad viral screen in ER negative -pulmonology continues to follow with us. Hospital-acquired pneumonia/aspiration -recurrent. Hospitalized in June 2023. -lung exam with diffuse congestion and rhonchi. -received Rocephin and doxycycline in the ER. Admitting hospitalist switched him to vancomycin cefepime, continued doxycycline. MRSA PCR screen is negative therefore will discontinue vancomycin. Considering the patient has a procalcitonin of 10 indicating that he has a severe pneumonia we will continue doxycycline and cefepime for now. Leukocytosis has also not peaked. Continue to monitor these 2 values. -blood and sputum cultures pending. -the most concerning aspect of this patient's status is that he was well before this year and now he suddenly has recurrent aspiration pneumonia. He will have to follow up with his ENT specialist. He apparently has severe dysphagia and GERD. Consult speech therapy to evaluate him again in provide swallowing recommendations. Start Protonix 40 mg IV q.a.m. as well. -appreciate pulmonology help with this patient. They have added a Cornet to help clear secretions and agreed with continuing guaifenesin. There was a concern for additional anatomical defects. A CT of neck and chest with contrast on 08/23 demonstrating pneumonia in the inferior lungs without tracheal stenosis or evidence of metastatic disease. Extrathoracic airway obstruction -pCO2 on admission 41.8. -pulmonology has decrease his steroid dosing to Solu-Medrol 40 mg IV q.6 hours. Okay with discontinuation of this. -he has chronic mucus production and cough. Continue Zyrtec and Mucinex and Cornet valve. He uses a mouth steamer at home. Appreciate any further pulmonology recommendations -continue CPAP at night. Sepsis without shock -lactic acidosis on admission 2.1, now cleared. -white count on admission 10.3 now elevated to 21.3 with bandemia. Continue to trend and check procalcitonin in the morning to help guide antib
[2023-08-25] MEDS: PANTOPRAZOLE SODIUM IV 40 MG VIAL IV PUSH (12:29)
--- NOTE | 2023-08-25 14:49 | PCSTNOTE ---
Please refer to the Modified Barium Swallow Evaluation in the EMR. The above pt was positioned for a lateral view and presented with thin liquids and pudding consistency in 3ml amounts. The pt also insisted on a small solid trial therefore a small crumbled cracker was tested as well. Given the patient's medical history of 30-35 radiation treatments to neck, recurrent pneumonia, current vocal hoarseness, and c/o food getting stuck in his throat, the pt was instructed on the initial trials to produce an effortful swallow. With all consistencies, the oral stages were within functional limits; with all consistencies, reduced tongue base retraction movement & absent epiglottic inversion was exhibited which resulted in severe vallecular residue; upon a/p view, residual was bilaterally equal. Reduced laryngeal elevation was also exhibited as evidenced by laryngeal penetration during the swallow and severe pyriform sinus residual. Aspiration subsequently occurred after the swallow. Cough reflex was also intermittent; at times, pt required instruction to cough. Pt was able to cough and clear a portion of the aspirate but not all contents were cleared. The pt produced repeated dry swallows as well but he was not able to clear all residual. Changes in head positioning, i.e. chin tuck/flexion resulted in minimal improvement or change. The use of a modified version of the supraglottic swallow also did not yield significant improvement. Impression: moderate to severe dysphagia Recommendation: outpatient speech therapy may be needed but pt has exercises from recent episode of therapy; pt's decision is to continue oral intake. Risks of continuing oral intake were discussed with the pt. If the decision is to continue oral intake the safest would be level 5 with swallow guidelines.
--- NOTE | 2023-08-25 15:28 | PM.DS ---
DS: Admitting Diagnosis Discharge Date 08/25/2023 Admitting Diagnosis Pneumonia DS: Discharge Diagnosis Discharge Diagnosis (1) History of radiation to head and neck region: Code(s): Z92.3 - Personal history of irradiation Status: Acute (2) Dysphagia: Code(s): R13.10 - Dysphagia, unspecified Status: Acute (3) Multifocal pneumonia: Code(s): J18.9 - Pneumonia, unspecified organism Status: Acute DS: Summary Hospital Course Hospital Course: Mr. 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 He is very active for his age, working out often.? He uses a steamer mask Mucinex and Zyrtec to try to attenuate his mucus secretions.? He reports his symptoms hit him suddenly at 3:00 p.m. on the day of admission 08/23/2023.? In [place] [facility] he was found to have pneumonia with acute hypoxic respiratory failure and given a 1 hour long neb treatment and antibiotics and subsequently admitted. Acute hypoxic respiratory failure -likely due to hospital-acquired/aspiration pneumonia.? This is now resolved.? What viral screen in ER negative. pending full report respiratory PCR panel -quad viral screen in ER negative -pulmonology continues to follow with us. Hospital-acquired pneumonia/aspiration -recurrent.? Hospitalized in June 2023. -lung exam with diffuse congestion and rhonchi. -received Rocephin and doxycycline in the ER.? Admitting hospitalist switched him to vancomycin cefepime, continued doxycycline.? MRSA PCR screen is negative therefore will discontinue vancomycin.? Considering the patient has a procalcitonin of 10 indicating that he has a severe pneumonia we will continue doxycycline and cefepime for now.? Leukocytosis has also not peaked.? Continue to monitor these 2 values. -blood and sputum cultures pending. -the most concerning aspect of this patient's status is that he was well before this year and now he suddenly has recurrent aspiration pneumonia.? He will have to follow up with his ENT specialist.? He apparently has severe dysphagia and GERD.? Consult speech therapy to evaluate him again in provide swallowing recommendations.? Start Protonix 40 mg IV q.a.m. as well. -appreciate pulmonology help with this patient.? They have added a Cornet to help clear secretions and agreed with continuing guaifenesin.? There was a concern for additional anatomical defects.? A CT of neck and chest with contrast on 08/23 demonstrating pneumonia in the inferior lungs without tracheal stenosis or evidence of metastatic disease. Extrathoracic airway obstruction -pCO2 on admission 41.8. -pulmonology has decrease his steroid dosing to Solu-Medrol 40 mg IV q.6 hours.? Okay with discontinuation of this. -he has chronic mucus production and cough.? Continue Zyrtec and Mucinex and Cornet valve.? He uses a mouth steamer at home.? Appreciate any further pulmonology recommendations -continue CPAP at night. Sepsis without shock -lactic acidosis on admission 2.1, now cleared. -white count on admission 10.3 now elevated to 21.3 with bandemia.? Continue to trend and check procalcitonin in the morning to help guide antibiotic management. -pending sputum culture and blood cultures Chronic conditions -continue levothyroxine FEN:? Regular diet.? Saline lock IV. GI prophylaxis:? Protonix DVT prophylaxis:? Lovenox 40 mg q.day Lines:? Peripheral IV Code Status:? Full code Dispo:? Stable on medical floor 08/25/23 upon further discussion with Dr. Bernal of pulmonology we agreed the patient could be discharged home. Importantly, the patient has been very anxious to leave. He is on room air currently so the acute hyp
--- NOTE | 2023-08-25 15:35 | PM.PNPUL ---
Progress Note: A&P Assessment and Plan (1) Multifocal pneumonia: Code(s): J18.9 - Pneumonia, unspecified organism Status: Acute Assessment and Plan: due to aspiration from anatomic abnormalities related to tonsil cancer 2002, surgery, radiation; bilateral lung bases on CXR; this is his second admission since May with aspiration due to his? abnormal upper airway anatomy and function.? He has been offered like a feeding tube and possibly an artificial airway but he wants to delay this as long as possible.? He is a robust healthy person and does not want to give up speech and eating.? (2) History of radiation to head and neck region: Code(s): Z92.3 - Personal history of irradiation Status: Acute Assessment and Plan: tonsil cancer 2002, surgery and radiation; has had years of dysphagia, increased mucus, voice changes; ? (3) Dysphagia: Code(s): R13.10 - Dysphagia, unspecified Status: Acute Assessment and Plan: Modified barium swallow today shows Pharyngeal dysphagia with laryngeal penetration and silent aspiration. He needs speech therapy. Long standing; he often regurgitates food after swallowing; food is streaked with whatever he just ate; he gets regurgitation after brushing teeth and leaning forward to spit. I agree with PPI to block acid, and follow up with GI. Given the patient's medical history of 30-35 radiation treatments to neck, recurrent pneumonia, current vocal hoarseness, and c/o food getting stuck in his throat, the pt was instructed on the initial trials to produce an effortful swallow. With all consistencies, the oral stages were within functional limits; with all consistencies, reduced tongue base retraction movement & absent epiglottic inversion was exhibited which resulted in severe vallecular residue; upon a/p view, residual was bilaterally equal.? Reduced laryngeal elevation was also exhibited as evidenced by laryngeal penetration during the swallow and severe pyriform sinus residual.? Aspiration subsequently occurred after the swallow. Cough reflex was also intermittent; at times, pt required instruction to cough. Pt was able to cough and clear a portion of the aspirate but not all contents were cleared.? The pt produced repeated dry swallows as well but he was not able to clear all residual.? Changes in head positioning, i.e. chin tuck/flexion resulted in minimal improvement or change. The use of a modified version of the supraglottic swallow also did not yield significant improvement. Impression: moderate to severe dysphagia Recommendation: outpatient speech therapy may be needed but pt has exercises from recent episode of therapy; pt's decision is to continue oral intake. Risks of continuing oral intake were discussed with the pt. If the decision is to continue oral intake the safest would be level 5 with swallow guidelines. Plan Plan Follow up with ENT, Dr Yañez. Augmentin and prednisone taper at discharge. PPI. Speech Therapy outpatient. This is his second pneumonia in 3 months continue Cornet at home to help clear secretions, continue mucolytics with guaifenesin This is on-going issue, he aspirates due to radiation damage to vocal cords from 2003 tonsil cancer. does not need to follow up with pulmonary. His lungs are ok, innocent bystanders when he aspirates. Subjective Date/time seen: 08/25/23 15:35 Interval history: 08/25/23; feels better; at bedside. She describes the episodes that he had on admission; he normally coughs, sputters, clears his airway with eating; he was desaturating to 80% when he had this episode on the day of admission. He has chemical injury to his lungs when he aspirates food and acid, not a typical bacterail infection. She wants to
[2023-08-28 12:47] LABS: Adenovirus DNA Not Detected (Not Detected); Chlamydophila pneumoniae Not Detected (Not Detected); Coronavirus 229E Not Detected (Not Detected); Coronavirus HKU1 Not Detected (Not Detected); Coronavirus NL63 Not Detected (Not Detected); Coronavirus OC43 Not Detected (Not Detected); Human Metapneumovirus Not Detected (Not Detected); Human Parainfluenza Virus 1 Not Detected (Not Detected); Human Parainfluenza Virus 2 Not Detected (Not Detected); Human Parainfluenza Virus 3 Not Detected (Not Detected); Human Parainfluenza Virus 4 Not Detected (Not Detected); Human RSV B Not Detected (Not Detected); Influenza A Not Detected (Not Detected); Influenza B Not Detected (Not Detected); Mycoplasma pneumoniae Not Detected (Not Detected); Rhinovirus/Enterovirus Not Detected (Not Detected)
== END 2023-08-25 16:00 | disposition home or self-care (01) | DRG 871 ==
LOC: ANHED 20:16 → ANHIMU 22:42 → ANH3MEDSUR 08-24 15:16 → ANHIMU 08-28 11:09
PROVIDERS: Internal Medicine Critical Care Medicine; Admitting Provider Internal Medicine; Emergency Provider Family Medicine; PCP Family Medicine; Visit Provider General Practice
DX: A41.9 Sepsis, unspecified organism (principal); J18.9 Pneumonia, unspecified organism; J69.0 Pneumonitis due to inhalation of food and vomit; J96.01 Acute respiratory failure with hypoxia; J44.0 Chronic obstructive pulmonary disease with (acute) lower respiratory infection; J38.00 Paralysis of vocal cords and larynx, unspecified; J39.8 Other specified diseases of upper respiratory tract; J98.8 Other specified respiratory disorders; E03.9 Hypothyroidism, unspecified; R13.10 Dysphagia, unspecified; Z20.822 Contact with and (suspected) exposure to COVID-19; Z77.22 Contact with and (suspected) exposure to environmental tobacco smoke (acute) (chronic); Z85.818 Personal history of malignant neoplasm of other sites of lip, oral cavity, and pharynx; Z92.3 Personal history of irradiation
CPT/HCPCS: 36415; 36600; 70491; 71045; 71260; 80048; 80053; 81003; 82805; 83605; 83735; 83880; 84145; 84484; 85025; 85380; 85610; 87040; 87070; 87205; 87633; 87637; 87641; 92611; 93005; 94640; 94667; 96374; 96375; 99285; A9270; C9113; J0692; J0696; J1650; J2405; J2919; J3370; J7030; Q9967

== ENCOUNTER 2025-01-07 11:12 | Emergency (ER) | payer MEDICARE, SELFPAY ==
--- NOTE | 2025-01-07 11:16 | ED_ITS ---
HPI - Male Genitourinary General Chief complaint: Skin/Abscess/Foreign Body Stated complaint: Urogenital-Male Time Seen by Provider: 01/07/25 11:25 Source: patient, RN notes reviewed and old records reviewed Mode of arrival: ambulatory Limitations: no limitations History of Present Illness HPI Narrative: 61-year-old male presents to the [facility] with penile redness. Patient is uncircumcised. Had apply jock itch cream which did not help. Patient reports itching. No pain with urination. Recently has been on a lot of antibiotics Denies any chances of STIs. Related Data Sexually active: Yes Home Medications ?Medication ?Instructions ?Recorded ?Confirmed ?Last Taken ?Type ergocalciferol (vitamin D2) 1,250 1,250 mcg PO DIRE CTED 05/23/23 11/07/24 08/16/23 08:00 History mcg (50,000 unit) capsule latanoprost 0.005 % eye drops 1 drp EACH EYE HS 11/07/24 08/22/23 21:00 History levothyroxine 88 mcg tablet 88 mcg PO DAILY 05/23/23 0 11/07/24 08/23/23 08:00 History azelastine 137 mcg (0.1 %) nasal 1 spray intranasal Q1 2H 11/13/24 Unknown History spray glycopyrrolate 1 mg tablet 1 mg PO BID-TID PRN 5 Unknown History (Blanca) glycopyrrolate 9 mcg-formoterol 2 puff inhalation Q12H 11/13/24 Unknown History 4.8 mcg HFA aerosol inhaler (Bevespi Aerosphere) Allergies Allergy/AdvReac Type Severity Reaction Status Date / Time No Known Allergies Allergy Verified 01/07/25 11:17 Review of Systems Review of Systems: All systems reviewed & are unremarkable except as noted in HPI and below Constitutional: Constitutional: Reports no additional constitutional complaints Genitourinary: Genitourinary: Reports as per HPI Musculoskeletal: Musculoskeletal: Reports no additional musculoskeletal complaints Integumentary/Breasts: Skin/Breast: Reports system reviewed and no additional complaints, except as docu PMFSH Past Medical History Medical History Weight loss Recurrent aspiration pneumonia GERD (gastroesophageal reflux disease) Multifocal pneumonia Second hand smoke exposure Tonsil cancer Hypothyroid COPD (chronic obstructive pulmonary disease) Surgical History Surgical History Hx of tonsillectomy Family History Family History Mother Lung cancer Social History Social History Smoking status: Never smoker Second hand tobacco smoke exposure: No Alcohol intake: current Alcohol use details: rarely Substance use: never Substance use type: does not use Do You Feel Safe in your Home?: Yes Lack of Transportation: No Lack of Food: Never True Current Housing: Decline to Answer Concerned About Future Housing: Decline to Answer Difficulty Paying Gas/Electric Bills: Decline to Answer Difficulty Paying for Meds: Decline to Answer Currently Unemployed: Decline to Answer Education: Decline to Answer Difficulty w/ Childcare or Family Care: Decline to Answer Living arrangements: with family Occupation/Education: retired Gender identity (if verbalized by the patient): Male Spiritual care concerns: No Comments At the time of my signature, I reviewed and agree with the nursing past medical, surgical, social, and family history. There is no relevant family history pertinent to the patient complaint. Exam Const: General: cooperative, no acute distress, well developed, alert and well nourished Nutritional Appearance: well nourished Orientation/consciousness: patient oriented x3 Limitations: no limitations HENMT: Head: normal to inspection Eyes: General: appearance normal, both eyes and all related structures Alignment and Position: alignment normal Neck: Neck: normal visual inspection, full ROM, no lymphadenopathy and no meningeal signs Chest: Chest palpation & inspection: normal inspection of the chest Resp: Effort & Inspection: normal respiratory effort and able to speak in complete sentences Cardio: Rate: regular rate : Penis: Yes uncircumcised, Yes erythematous, No papules, No pustules, No vesicles, No phimosis and No Localized penile swelling present Skin: General skin exam: normal color and no rashes or lesions noted Neuro: General: patient oriented x3, gait normal, moves all extremities and no meningeal signs Cognition (Neuro): normal cognition Speech: normal speech Gait exam (Neuro): Normal gait present Extrem: General: normal to inspection, full ROM, capillary refill normal and normal gait Psych: Appearance: grossly normal and well kempt Mental Status: mental status grossly normal Speech and movement: Normal speech and movement present and Clear speech present Affect: normal affect Attitude: cooperative Course Course Level of Care: Express Care Visit Vital Signs Vital signs: Vital Signs Temperature 98.0 F 01/07/25 11:22 Pulse Rate 98 01/07/25 11:22 Respiratory Rate 16 01/07/25 11:22 Blood Pressure 134/79 01/07/25 11:22 Pulse Oximetry 94 01/07/25 11:22 Oxygen Delivery Room Air 01/07/25 11:22 Temperature 98.0 F 01/07/25 11:22 Pulse Rate 98 01/07/25 11:22 Respiratory Rate 16 01/07/25 11:22 Blood Pressure 134/79 01/07/25 11:22 Pulse Oximetry 94 01/07/25 11:22 Oxygen Delivery Room Air 01/07/25 11:22 Reviewed MDM - Male Genitourinary MDM Narrative Medical decision making narrative: Patient sitting comfortably in exam room. Patient is nontoxic, vitals stable. Patient presents with increased redness since to his penis. Patient is on circumstances. Multiple antibiotics and steroids recently. Currently on Bactrim. Exam most consistent with balanitis. Patient appropriate for outpatient treatment with close follow-up Discharge instructions reviewed with patient, as well as provided in writing per nursing staff. The instructions also include specific and strict return/GO TO THE ER as well as f/u information. All questions have been answered, and the patient deny any further questions with discharge and discharge plan. Some parts of this dictation were generated by voice recognition software and may contain typographical and/or grammatical inaccuracies. Differential Diagnosis Differential diagnosis: Likely urinary tract infection, urethritis, epididymitis and other Critical Care Time Critical Care Time Critical Care Time: No Discharge Plan Discharge Clinical Impression: Balanitis Patient Disposition: Home Condition: Stable Instructions: Balanitis (ED) Additional Instructions: Apply cream that was prescribed twice a day Take the antifungal, fluconazole If symptoms are not improving in 3-5 days follow-up with primary care provider For worsening symptoms go directly to the emergency room Patient Language: Armenian Prescriptions: New fluconazole 150 mg tablet 150 mg PO ONCE Qty: 1 0RF Rx Instructions: as a single dose clotrimazole 1 % cream 1 applic topical BID 14 Days Qty: 45 0RF No Action latanoprost 0.005 % drops 1 drp EACH EYE HS levothyroxine 88 mcg tablet 88 mcg PO DAILY ergocalciferol (vitamin D2) 1,250 mcg (50,000 unit) capsule 1,250 mcg PO DIRECTED Rx Instructions: every other week - takes on Monday azelastine 137 mcg (0.1 %) spray,non-aerosol 1 spray intranasal Q12H Rx Instructions: administer into each nostril Bevespi Aerosphere 9-4.8 mcg HFA aerosol inhaler 2 puff inhalation Q12H glycopyrrolate [Robinul] 1 mg tablet 1 mg PO BID-TID PRN famotidine [Pepcid] 20 mg tablet 20 mg PO QHS Qty: 30 5RF pantoprazole 20 mg tablet,delayed release (DR/EC) 20 mg PO QAM 90 Days Qty: 90 3RF Zyrtec 10 mg capsule 10 mg PO DAILY Qty: 30 0RF guaifenesin 1,200 mg tablet extended release 12hr 1,200 mg PO BID PRN (Reason: congestion) Qty: 60 0RF Follow-up/Referrals: Wang,MD Imer [Primary Care Provider, Unknown] - 1 Week Clinical Impression: Balanitis Stand Alone Forms: Work/School Release IP Time of Disposition: 11:39
[2025-01-07 11:22] VITALS: BP 134/79; PULSE 98; RESP 16; TEMP 36.7; O2SAT 94
== END 2025-01-07 11:46 | disposition home or self-care (01) ==
PROVIDERS: Emergency Provider Nurse Practitioner; PCP Family Medicine
DX: N48.1 Balanitis (principal); K21.9 Gastro-esophageal reflux disease without esophagitis; E03.9 Hypothyroidism, unspecified; J44.9 Chronic obstructive pulmonary disease, unspecified
CPT/HCPCS: 99213; G0463